=== PATIENT | male | born 1990 | race Caucasian/White ===

== ENCOUNTER 2017-03-29 15:29 | Emergency (ER) | payer SELFPAY ==
[~2017-03-29] VITALS: Ht 177.8 cm; Wt 80.0 kg
[~2017-03-29 15:29] MED LIST: Z.0.NO CURRENT MEDS; ZITH250T PO
[2017-03-29 15:30] VITALS: BP 143/100; PULSE 93; RESP 18; TEMP 98; O2SAT 98
--- NOTE | 2017-03-29 15:58 | PD ---
HPI Chief Complaint: GI Complaint Time Seen by Provider: 15:57 Travel History International Travel<30 days: No Contact w/Intl Traveler<30days: No Traveled to known affect area: No History of Present Illness HPI 27-year-old male presents to the emergency Department with complaint of rectal pain and bleeding for the last 5-6 months. Reports bright red blood with bowel movements only. Denies abdominal pain, nausea, vomiting, fever. Denies testicular swelling, penile discharge. Denies dysuria. Reports rectal pain as a stabbing, burning sensation. Denies palpable hemorrhoids. Has been using hemorrhoid cream with no relief of symptoms. Says rectal pain is constant, even without bowel movements. History of polyps. Allergies to Demerol. Has no other medical complaints. No other modifying factors or associated signs and symptoms. PFSH Past Medical History Diminished Hearing: No Past Surgical History Tonsillectomy: Yes Social History Alcohol Use: Yes (q 2 wks) Tobacco Use: Yes (1/2 ppd) Substance Use: Yes Allergies-Medications (Allergen,Severity, Reaction): Coded Allergies: Demerol (Verified Allergy, Severe, as per mom, makes him go crazy, 03/29/17) Reported Meds & Prescriptions Reported Meds & Active Scripts Active No Active Prescriptions or Reported Medications Review of Systems Except as stated in HPI: all other systems reviewed are Neg Physical Exam Narrative GENERAL: Well-nourished, well-developed male patient, in no acute distress; afebrile, nontoxic-appearing SKIN: Warm and dry. HEAD: Atraumatic. Normocephalic. EYES: Pupils equal and round. No scleral icterus. No injection or drainage. ENT: Mucosa pink and moist. Airway patent. NECK: Trachea midline. CARDIOVASCULAR: Regular rate. RESPIRATORY: No accessory muscle use. GASTROINTESTINAL: Abdomen soft, non-tender, nondistended. Hepatic and splenic margins not palpable. Bowel sounds are active 4 quadrants. No guarding. Nonrigid. RECTAL EXAM: Exam done in the presence of a nurse. No masses or tenderness. Colon is empty without stool. Hemaprompt: unable to perform secondary to no stool obtained. No visualized external hemorrhoids. No internal hemorrhoids palpable. MUSCULOSKELETAL: No obvious deformities. No clubbing. No cyanosis. No edema. NEUROLOGICAL: Awake and alert. Oriented 3. No obvious cranial nerve deficits. Motor grossly within normal limits. Normal speech. PSYCHIATRIC: Appropriate mood and affect; insight and judgment normal. Data Data Last Documented VS Vital Signs Date Time Temp Pulse Resp B/P Pulse Ox O2 Delivery O2 Flow Rate FiO2 03/29/17 16:06 126/84 03/29/17 15:30 98.0 93 18 98 Room Air MDM Medical Decision Making Medical Screen Exam Complete: Yes Emergency Medical Condition: Yes Medical Record Reviewed: Yes Differential Diagnosis Hemorrhoid, polyp, anal fissure, rectal bleeding Narrative Course 27-year-old female with rectal bleeding with each stool 5-6 months. Physical and rectal exam are unremarkable. I tried to obtain a Hemoccult but the colon is empty and there was no obtainable stool. No visualized or palpable hemorrhoids on exam. Instructed patient to follow up with gastroenterology. 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 Instructed patient to follow up with primary care provider. Patient verbalizes understanding and agreement with treatment plan. Patient is medically cleared and stable for discharge. Discussed reasons to return to the emergency department. Patient agrees with treatment plan. The patients vital signs are stable and the patient is stable for outpatient follow-up and treatment. Patient discharged home, stable and in no acute distress. Diagnosis Primary Impression: Rectal bleeding Referrals: Elizabeth Hameed MD [employer] Primary Care Physician Patient Instructions: General Instructions, Rectal Bleeding (ED) Additional Instructions: [id number] stool softeners as directed and as needed Follow-up with gastroenterology Follow-up with primary care provider Return to the emergency department immediately for worsening of symptoms Scripts No Active Prescriptions or Reported Meds Disposition: 01 DISCHARGE HOME Condition: Stable Winnie Herndon [facility] Mar 29, 2017 15:58
[2017-03-29 16:06] VITALS: BP_SYST 126; BP_DIAS 74; BP_DIAS 84
== END 2017-03-29 16:44 | disposition home or self-care (01) ==
LOC: NEPD 15:29
DX: K62.5 Hemorrhage of anus and rectum (principal); F17.210 Nicotine dependence, cigarettes, uncomplicated; F19.10 Other psychoactive substance abuse, uncomplicated
CPT/HCPCS: 99282

== ENCOUNTER 2017-08-12 11:41 | Inpatient (IN) | payer OTHER ==
[~2017-08-12] VITALS: Ht 175.3 cm; Wt 90.0 kg
[2017-08-12 11:45] VITALS: BP 129/84; PULSE 112; RESP 17; TEMP 98.9; O2SAT 100
[2017-08-12] MEDS ORDERED: ACETAMINOPHEN/HYDROcodone 325 MG/5 MG TAB PO ONE (15:45)
[2017-08-12] MEDS ORDERED: LIDOCAINE HCL 1% 50 ML VIAL INFIL ONE (15:45)
--- NOTE | 2017-08-12 15:59 | RADRPT ---
EXAM DATE/TIME: 08/12/2017 15:41 [place] COMPARISON: No previous studies available for comparison. INDICATIONS : [place] fell on big toe last night. MEDICAL HISTORY : None. SURGICAL HISTORY : None. ENCOUNTER: Initial ACUITY: 1 day PAIN SCORE: 9/10 LOCATION: Distal first digit. FINDINGS: AP, lateral and oblique views the right foot were obtained and demonstrate a mildly comminuted fractu re deformity of first distal phalanx. There is fragmentation of the tuft with a linear fracture line extending into the interphalangeal joint. There is overlying soft tissue swelling. No other bony abno rmalities are present. CONCLUSION: Comminuted fracture of the first distal phalanx. Obed Lee MD on August 12, 2017 at 15:56 Board Certified Radiologist. This report was verified electronically.
[2017-08-12] MEDS ORDERED: LIDOCAINE HCL 1% PF 30 ML VIAL ONE (16:01)
--- NOTE | 2017-08-12 16:34 | PD ---
HPI Chief Complaint: Injury Time Seen by Provider: 15:27 Travel History International Travel<30 days: No Contact w/Intl Traveler<30days: No Traveled to known affect area: No History of Present Illness HPI 27-year-old male presents to emergency department complaining of a wound to his right great toe since yesterday. States at a frozen turkey fell on his great toe and is in significant pain. Patient still has range of motion and sensation to the toe however, he is in severe pain. He has been able to control the bleeding on his own. [facility] Past Medical History Medical History: Denies Significant Hx Diminished Hearing: No Past Surgical History Tonsillectomy: Yes Social History Alcohol Use: Yes (q 2 wks) Tobacco Use: Yes (1/2 ppd) Substance Use: Yes Allergies-Medications (Allergen,Severity, Reaction): Coded Allergies: meperidine (Unverified Allergy, Severe, as per mom, makes him go crazy, ) Reported Meds & Prescriptions Reported Meds & Active Scripts Active No Active Prescriptions or Reported Medications Review of Systems Except as stated in HPI: all other systems reviewed are Neg Physical Exam Narrative GENERAL: Well-nourished, well-developed patient. SKIN: Focused skin assessment warm/dry. HEAD: Normocephalic. EYES: No scleral icterus. No injection or drainage. NECK: Supple, trachea midline. No JVD or lymphadenopathy. CARDIOVASCULAR: Regular rate and rhythm without murmurs, gallops, or rubs. RESPIRATORY: Breath sounds equal bilaterally. No accessory muscle use. GASTROINTESTINAL: Abdomen soft, non-tender, nondistended. MUSCULOSKELETAL: No cyanosis, or edema. Right great toe- neurovascularly intact, laceration approximately 1-1/2 cm on the very distal portion of his toe perpendicular to toe phalanx. Bleeding controlled. Ecchymosis noted from the distal phalanx to approximately 3 cm to the proximal foot BACK: Nontender without obvious deformity. No CVA tenderness. Data Data Last Documented VS Vital Signs Date Time Temp Pulse Resp B/P (MAP) Pulse Ox O2 Delivery O2 Flow Rate FiO2 08/12/17 17:49 92 15 148/87 (107) 100 Room Air 08/12/17 11:45 98.9 Orders Orders Foot, Complete ([id number]) (08/12/17 ) Lidocaine 1% Inj (50 Ml) (Xylocaine 1% I (08/12/17 15:45) Acetamin-Hydrocod 325-5 Mg ([place] 5-325 (08/12/17 15:45) Lidocaine Pf 1% Inj (Xylocaine-Mpf 1% In (08/12/17 16:01) Tetanus/Diphtheria Tox Adult (Tetanus/Di (08/12/17 16:45) Cefazolin Inj (Ancef Inj) (08/12/17 16:45) Cefazolin Inj (Ancef Inj) (08/12/17 17:15) Morphine Inj (Morphine Inj) (08/12/17 18:15) Gentamicin Inj (Gentamicin Inj) (08/12/17 18:15) Complete Blood Count With Diff (08/12/17 18:04) Basic Metabolic Panel (Bmp) (08/12/17 18:04) Consult Podiatry (08/12/17 ) Admit To Inpatient (08/12/17 ) Vital Signs (Adult) Q4H (08/12/17 19:12) Activity Oob Ad Hannah (08/12/17 19:12) Diet Npo (08/13/17 Breakfast) Diet Regular Basic (08/12/17 Dinner) Sodium Chlor 0.9% 1000 Ml Inj (Ns 1000 M (08/12/17 19:12) Sodium Chloride 0.9% Flush (Ns Flush) (08/12/17 19:15) Sodium Chloride 0.9% Flush (Ns Flush) (08/12/17 21:00) Ondansetron Inj (Zofran Inj) (08/12/17 19:15) Comprehensive Metabolic Panel (08/13/17 06:00) Complete Blood Count With Diff (08/13/17 06:00) Mechanical Contraindication (08/12/17 19:12) Acetaminophen (Tylenol) (08/12/17 19:15) Acetamin-Hydrocod 325-5 Mg ([place] 5-325 (08/12/17 19:15) Morphine Inj (Morphine Inj) (08/12/17 19:15) Docusate Sodium-Senna (Cindy-Colace) (08/12/17 21:00) Magnesium Hydroxide Liq (Milk Of Magnesi (08/12/17 19:15) Sennosides (Senokot) (08/12/17 19:15) Bisacodyl Supp (Dulcolax Supp) (08/12/17 19:15) Lactulose Liq (Lactulose Liq) (08/12/17 19:15) Inpatient Certification (08/12/17 ) (Hub Use Only)Inp Phy Cons/Ref (08/12/17 ) Labs Laboratory Tests Test 08/12/17 18:20 White Blood Count 8.8 TH/MM3 Red Blood Count 4.36 MIL/MM3 Hemoglobin 14.4 GM/DL Hematocrit 41.5 % Mean Corpuscular Volume 95.1 FL Mean Corpuscular Hemoglobin 33.0 PG Mean Corpuscular Hemoglobin Concent 34.7 % Red Cell Distribution Width 13.5 % Platelet Count 228 TH/MM3 Mean Platelet Volume 7.7 FL Neutrophils (%) (Auto) 58.9 % Lymphocytes (%) (Auto) 29.9 % Monocytes (%) (Auto) 9.8 % Eosinophils (%) (Auto) 1.1 % Basophils (%) (Auto) 0.3 % Neutrophils # (Auto) 5.2 TH/MM3 Lymphocytes # (Auto) 2.6 TH/MM3 Monocytes # (Auto) 0.9 TH/MM3 Eosinophils # (Auto) 0.1 TH/MM3 Basophils # (Auto) 0.0 TH/MM3 CBC Comment DIFF FINAL Differential Comment Blood Urea Nitrogen 18 MG/DL Creatinine 1.00 MG/DL Random Glucose 85 MG/DL Calcium Level 9.0 MG/DL Sodium Level 139 MEQ/L Potassium Level 4.0 MEQ/L Chloride Level 106 MEQ/L Carbon Dioxide Level 25.3 MEQ/L Anion Gap 8 MEQ/L Estimat Glomerular Filtration Rate 89 ML/MIN [facility] Medical Decision Making Medical Screen Exam Complete: Yes Emergency Medical Condition: Yes Differential Diagnosis Toe laceration versus abrasion versus avulsion Toe fracture versus contusion versus abrasion Narrative Course 27-year-old male presents to emergency department complaining of a wound to his right great toe since yesterday. States at a frozen turkey fell on his great toe and is in significant pain. Patient still has range of motion and sensation to the toe however, he is in severe pain. He has been able to control the bleeding on his own. Vital signs stable X-ray demonstrates a comminuted fracture of the distal phalanx right great toe Laceration to the distal portion approximately 1-2 cm perpendicular to the phalanx. No obvious bony involvement. Concern for open fracture- moved to echo pod for further treatment. Ancef 2 g IV administered. Spoke with Dr. Colvin, podiatry, and she suggested exploration of the area in addition to the treatments patient is getting already. After speaking with Dr. Thomas, he also explored the laceration to determine the extent of the soft tissue injury. Patient has been nothing by mouth since 10 AM this morning. Transferred care over to Dr. Thomas. See his note as well for care and dispo. Diagnosis Primary Impression: Fracture Additional Impression: Laceration of toe Qualified Codes: S91.111A - Laceration without foreign body of right great toe without damage to nail, initial encounter Referrals: Account Classification Clerk Additional Instructions: Follow-up with her primary care physician within 2 days. Follow-up podiatry within 1-2 days. If her pain worsens or persists return to the emergency department. Scripts No Active Prescriptions or Reported Meds Condition: Stable Yue Carrizales Aug 12, 2017 16:34
[2017-08-12] MEDS ORDERED: TETANUS/DIPHTHERIA TOXOID ADULT 0.5 ML VIAL IM ONE (16:45)
--- NOTE | 2017-08-12 17:12 | PD ---
Data Data Last Documented VS Vital Signs Date Time Temp Pulse Resp B/P (MAP) Pulse Ox O2 Delivery O2 Flow Rate FiO2 08/12/17 17:49 92 15 148/87 (107) 100 Room Air 08/12/17 11:45 98.9 Orders Orders Foot, Complete ([id number]) (08/12/17 ) Lidocaine 1% Inj (50 Ml) (Xylocaine 1% I (08/12/17 15:45) Acetamin-Hydrocod 325-5 Mg ([place] 5-325 (08/12/17 15:45) Lidocaine Pf 1% Inj (Xylocaine-Mpf 1% In (08/12/17 16:01) Tetanus/Diphtheria Tox Adult (Tetanus/Di (08/12/17 16:45) Cefazolin Inj (Ancef Inj) (08/12/17 16:45) Cefazolin Inj (Ancef Inj) (08/12/17 17:15) Morphine Inj (Morphine Inj) (08/12/17 18:15) Gentamicin Inj (Gentamicin Inj) (08/12/17 18:15) Complete Blood Count With Diff (08/12/17 18:04) Basic Metabolic Panel (Bmp) (08/12/17 18:04) Labs Laboratory Tests Test 08/12/17 18:20 White Blood Count 8.8 TH/MM3 Red Blood Count 4.36 MIL/MM3 Hemoglobin 14.4 GM/DL Hematocrit 41.5 % Mean Corpuscular Volume 95.1 FL Mean Corpuscular Hemoglobin 33.0 PG Mean Corpuscular Hemoglobin Concent 34.7 % Red Cell Distribution Width 13.5 % Platelet Count 228 TH/MM3 Mean Platelet Volume 7.7 FL Neutrophils (%) (Auto) 58.9 % Lymphocytes (%) (Auto) 29.9 % Monocytes (%) (Auto) 9.8 % Eosinophils (%) (Auto) 1.1 % Basophils (%) (Auto) 0.3 % Neutrophils # (Auto) 5.2 TH/MM3 Lymphocytes # (Auto) 2.6 TH/MM3 Monocytes # (Auto) 0.9 TH/MM3 Eosinophils # (Auto) 0.1 TH/MM3 Basophils # (Auto) 0.0 TH/MM3 CBC Comment DIFF FINAL Differential Comment MDM Supervised Visit with NOAH: Yes Narrative Course I, Dr. Thomas, have reviewed the advance practice practitioner's documentation and am in agreement, met with the patient face to face, made the diagnosis, and the medical decision making was done by me. *My assessment and Findings: Patient seen and examined by me in addition to [place] SURESH. Patient has laceration over the tip of the right great toe as well as a small subungual hematoma after dropping a 20 pound frozen turkey on his toe. Patient does have a comminuted fracture of the distal phalanx of the right great toe. The wound was explored by me and i cannot really identify the basement membrane given the swelling of his foot but certainly open fracture is likely. Ancef was given, podiatry consultation by phone is still pending. Engineering Aid arrives at the bedside to recommend IV antibiotics overnight as well as washout in the morning. Additional pain medicine was given the patient be nothing by mouth after midnight. [facility] has been paged for admission. Diagnosis Primary Impression: Fracture Additional Impression: Laceration of toe Qualified Codes: S91.111A - Laceration without foreign body of right great toe without damage to nail, initial encounter Referrals: Engineering Aid Additional Instruction: Follow-up with her primary care physician within 2 days. Follow-up podiatry within 1-2 days. If her pain worsens or persists return to the emergency department. Scripts No Active Prescriptions or Reported Meds Disposition: 01 DISCHARGE HOME Condition: Stable Wagner Thomas MD Aug 12, 2017 17:12
[2017-08-12 17:49] VITALS: BP 148/87; PULSE 92; RESP 15; O2SAT 100
[2017-08-12] MEDS ORDERED: MORPHINE SULFATE 8 MG/ML INJ IV PUSH ONE (18:15)
[2017-08-12] MEDS ORDERED: GENTAMICIN INJ 80 MG in SODIUM CHLORIDE 0.9% INJ 100 ML IV ONE (18:15)
[2017-08-12 18:33] LABS: AUTOMATED NEUTROPHIL # 5.2 TH/MM3 (1.8-7.7); BASOPHIL % 0.3 % (0.0-2.0); EOSINOPHIL # 0.1 TH/MM3 (0-0.4); EOSINOPHIL % 1.1 % (0.0-4.0); HEMATOCRIT 41.5 % (39.0-51.0); HEMO FLAGS DIFF FINAL; LYMPH % 29.9 % (9.0-44.0); LYMPHOCYTE # 2.6 TH/MM3 (1.0-4.8); MEAN CELL VOLUME 95.1 FL (80.0-100.0); MEAN CORPUSCULAR HGB CONC 34.7 % (32.0-36.0); MONO % 9.8 % (0.0-8.0); NEUT % 58.9 % (16.0-70.0); PLATELET COUNT 228 TH/MM3 (150-450); RED BLOOD COUNT 4.36 MIL/MM3 (4.50-5.90); RED CELL DISTRIBUTION WIDTH 13.5 % (11.6-17.2); WHITE BLOOD COUNT 8.8 TH/MM3 (4.0-11.0)
[2017-08-12 18:47] LABS: BICARBONATE 25.3 MEQ/L (21.0-32.0)
[2017-08-12] MEDS ORDERED: ONDANSETRON HCL 4 MG/2 ML VIAL IVP PRN (19:15)
[2017-08-12] MEDS ORDERED: BISACODYL 10 MG SUPP RECTAL PRN (19:15)
[2017-08-12] MEDS ORDERED: ACETAMINOPHEN 325 MG TAB PO PRN (19:15)
[2017-08-12] MEDS ORDERED: SENNOSIDES 8.6 MG TAB PO PRN (19:15)
[2017-08-12] MEDS ORDERED: LACTULOSE SYRUP 20 GM/30 ML CUP PO PRN (19:15)
[2017-08-12] MEDS ORDERED: MAGNESIUM HYDROXIDE SUSP 30 ML CUP PO PRN (19:15)
[2017-08-12] MEDS ORDERED: SODIUM CHLORIDE 0.9% FLUSH 10 ML FLUSH IV FLUSH PRN (19:15)
--- NOTE | 2017-08-12 19:16 | HHI.HP ---
[facility]ician No Primary Care Physician Admission Diagnosis Diagnoses: (1) Open toe fracture Diagnosis: Principal (2) Toe pain Diagnosis: Principal (3) HTN (hypertension) Diagnosis: Principal (4) Tobacco abuse Diagnosis: Principal Travel History International Travel<30 Days: No Contact w/Intl Traveler <30 Da: No Traveled to Known Affected Are: No History of Present Illness This is a 27-year-old male with no significant PMH who presented to the ER with complaints of right great toe pain x1 day. States he dropped a frozen Thanksgiving turkey on his foot yesterday, +laceration w/ significant bleeding. Denies any other injury. On arrival, BP 148/87, HR 92, O2 sat 100% on RA, Afebrile. CBC unremarkable. Chemistry unremarkable. Foot X-ray with comminuted fracture first distal phalanx. Dr. Anthony w/ Podiatry consulted by ER physician, plan is for surgical intervention in am. Review of Systems Except as stated in HPI: all other systems reviewed are Neg ROS: 14 point review of systems otherwise negative. Past Family Social History Past Medical History PMH: None Past Surgical History PAST SURGICAL HISTORY: Tonsillectomy Allergies: Coded Allergies: meperidine (Unverified Allergy, Severe, as per mom, makes him go crazy, ) Family History PAST FAMILY HISTORY: Reviewed. No h/o DM or CAD Social History PAST SOCIAL HISTORY: Occasional alcohol. Smokes 1/2ppd. H/o substance use Physical Exam Vital Signs Vital Signs Date Time Temp Pulse Resp B/P (MAP) Pulse Ox O2 Delivery O2 Flow Rate FiO2 08/12/17 17:49 92 15 148/87 (107) 100 Room Air 08/12/17 16:00 Room Air 08/12/17 11:45 98.9 112 17 129/84 (99) 100 Physical Exam PE: GENERAL: Young white male in no acute distress. HEENT: PERRLA, EOMI. No scleral icterus or conjunctival pallor. No lid lag or facial droop. CARDIOVASCULAR: Regular rate and rhythm. No obvious murmurs to auscultation. No chest tenderness to palpation. RESPIRATORY: No obvious rhonchi or wheezing. Clear to auscultation. Breath sounds equal bilaterally. GASTROINTESTINAL: Abdomen soft, non-tender, nondistended. BS normal. MUSCULOSKELETAL: Extremities without clubbing, cyanosis, or edema. No obvious deformities. Right great toe w/ bloody dressing, decreased ROM due to injury. Pulses intact NEUROLOGICAL: Awake, alert and oriented x4. No focal neurologic deficits. Moving both upper and lower extremities spontaneously. Laboratory Laboratory Tests Test 08/12/17 18:20 White Blood Count 8.8 Red Blood Count 4.36 Hemoglobin 14.4 Hematocrit 41.5 Mean Corpuscular Volume 95.1 Mean Corpuscular Hemoglobin 33.0 Mean Corpuscular Hemoglobin Concent 34.7 Red Cell Distribution Width 13.5 Platelet Count 228 Mean Platelet Volume 7.7 Neutrophils (%) (Auto) 58.9 Lymphocytes (%) (Auto) 29.9 Monocytes (%) (Auto) 9.8 Eosinophils (%) (Auto) 1.1 Basophils (%) (Auto) 0.3 Neutrophils # (Auto) 5.2 Lymphocytes # (Auto) 2.6 Monocytes # (Auto) 0.9 Eosinophils # (Auto) 0.1 Basophils # (Auto) 0.0 CBC Comment DIFF FINAL Differential Comment Blood Urea Nitrogen 18 Creatinine 1.00 Random Glucose 85 Calcium Level 9.0 Sodium Level 139 Potassium Level 4.0 Chloride Level 106 Carbon Dioxide Level 25.3 Anion Gap 8 Estimat Glomerular Filtration Rate 89 Result Diagram: 08/12/17181908/12/171819 Caprini VTE Risk Assessment Caprini VTE Risk Assessment: No/Low Risk (score <= 1) Caprini Risk Assessment Model Point Value = 1 Point Value = 2 Point Value = 3 Point Value = 5 Age 41-60 Minor surgery BMI > 25 kg/m2 Swollen legs Varicose veins or History of unexplained or recurrent spontaneous Oral contraceptives or hormone replacement Sepsis (< 1 month) Serious lung disease, including pneumonia (< 1 month) Abnormal pulmonary function Acute myocardial infarction Congestive heart failure (< 1 month) History of inflammatory bowel disease Medical patient at bed rest Age 61-74 Arthroscopic surgery Major open surgery (> 45 min) Laparoscopic surgery (> 45 min) Malignancy Confined to bed (> 72 hours) Immobilizing plaster cast Central venous access Age >= 75 History of VTE Family history of VTE Factor V Leiden Prothrombin [id number] Lupus anticoagulant Anticardiolipin antibodies Elevated serum homocysteine Heparin-induced thrombocytopenia Other congenital or acquired thrombophilia Stroke (< 1 month) Elective arthroplasty Hip, pelvis, or leg fracture Acute spinal cord injury (< 1 month) Prophylaxis Regimen Total Risk Factor Score Risk Level Prophylaxis Regimen 0-1 Low Early ambulation 2 Moderate Order ONE of the following: *Sequential Compression Device (SCD) *Heparin 5000 units SQ BID 3-4 Higher Order ONE of the following medications: *Heparin 5000 units SQ TID *Enoxaparin/Lovenox 40 mg SQ daily (WT < 150 kg, CrCl > 30 mL/min) *Enoxaparin/Lovenox 30 mg SQ daily (WT < 150 kg, CrCl > 10-29 mL/min) *Enoxaparin/Lovenox 30 mg SQ BID (WT < 150 kg, CrCl > 30 mL/min) AND/OR *Sequential Compression Device (SCD) 5 or more Highest Order ONE of the following medications: *Heparin 5000 units SQ TID (Preferred with Epidurals) *Enoxaparin/Lovenox 40 mg SQ daily (WT < 150 kg, CrCl > 30 mL/min) *Enoxaparin/Lovenox 30 mg SQ daily (WT < 150 kg, CrCl > 10-29 mL/min) *Enoxaparin/Lovenox 30 mg SQ BID (WT < 150 kg, CrCl > 30 mL/min) AND *Sequential Compression Device (SCD) Assessment and Plan Problem List: (1) Open toe fracture ICD Code: S92.919B - Unspecified fracture of unspecified toe(s), initial encounter for open fracture (2) Toe pain ICD Code: M79.676 - Pain in unspecified toe(s) (3) HTN (hypertension) ICD Code: I10 - Essential (primary) hypertension (4) Tobacco abuse ICD Code: Z72.0 - Tobacco use Assessment and Plan A/P: 1. Open Toe Fx: s/p injury after frozen turkey fell on right great toe, + laceration. Foot X-ray w/ comminuted fracture first distal phalanx, images reviewed by me. Dr. Anthony consulted by ER physician, plan is for surgical intervention in am. NPO after midnight, IVF, Ancef, analgesics/antiemetics. Pre-op labs unremarkable. 2. Toe Pain: secondary to above. Analgesics/antiemetics as needed. 3. HTN: BP 140's, likely compounded by pain complaints, monitor BP, optimize pain control. 4. Tobacco Abuse: Pt counselled. NicoDerm prn if needed. 5. DVT Prophylaxis: Mechanical contraindication secondary to injury, Pharmacologic contraindication secondary to surgical intervention. 6. Social work for d/c planning as needed. 7. Case discussed w/ ER physician at length. Physician Certification 2 Midnight Certification Type: Admission for Inpatient Services Order for Inpatient Services The services are ordered in accordance with Medicare regulations or non- Medicare payer requirements, as applicable. In the case of services not specified as inpatient-only, they are appropriately provided as inpatient services in accordance with the 2-midnight benchmark. Estimated LOS (days): 2 days is the estimated time the patient will need to remain in the hospital, assuming treatment plan goals are met and no additional complications. Post-Hospital Plan: Not yet determined Debbi Orlando MD Aug 12, 2017 19:16
[2017-08-12 21:20] VITALS: BP 145/83; PULSE 93; RESP 18; O2SAT 100
[2017-08-12] MEDS: SODIUM CHLORIDE 0.9% FLUSH 10 ML FLUSH IV FLUSH SCH (21:25)
[2017-08-12] MEDS: SODIUM CHLOR 0.9% 1000 ML INJ 1,000 ML IV SCH (21:25)
[2017-08-12] MEDS: DOCUSATE SODIUM 50 MG/SENNA 8.6 MG TAB PO SCH (21:25)
[2017-08-12] MEDS: MORPHINE SULFATE 4 MG/ML INJ IV PUSH PRN ×2 (21:26→22:26)
[2017-08-12 22:00] VITALS: BP 126/82; PULSE 93; RESP 17; TEMP 97.3; O2SAT 96
[2017-08-12] MEDS: ACETAMINOPHEN/HYDROcodone 325 MG/5 MG TAB PO PRN (22:26)
[2017-08-12] MEDS ORDERED: LACTATED RINGER'S 1000 ML IV PRN (22:30)
[2017-08-12] MEDS ORDERED: POVIDONE IODINE 5% (ANTISEPSIS KIT) 4 APPLICATIONS EACH NARE PRN (22:30)
[2017-08-12] MEDS ORDERED: CHLORHEXIDINE GLUCONATE 2 % 1 PACK (2 CLOTHS) TOPICAL PRN (22:30)
--- NOTE | 2017-08-12 22:43 | PD.CONS ---
History of Present Illness Service Podiatry Consult Requested By ED Reason for Consult R hallux open fracture, distal phalanx 2 days old Primary Care Physician No Primary Care Physician Diagnoses: History of Present Illness 27-year-old male with no significant PMH who presented to the ER with complaints of right great toe pain x1 day. States he dropped a frozen Thanksgiving turkey on his foot yesterday, +laceration w/ significant bleeding. Denies any other injury. On arrival, BP 148/87, HR 92, O2 sat 100% on RA, Afebrile. CBC unremarkable. Chemistry unremarkable. Foot X-ray with comminuted fracture first distal phalanx. Past Family Social History Allergies: Coded Allergies: meperidine (Unverified Allergy, Severe, as per mom, makes him go crazy, ) Past Medical History Denies Past Surgical History Tonsillectomy Active Ordered Medications Current Medications Medications (Trade) Dose Ordered Sig/Emanuel Route Start Time Stop Time Status Last Admin Sodium Chloride 1,000 ml @ 100 mls/hr Q10H IV 08/12/17 19:12 08/12/17 21:25 (NS Flush) 2 ml UNSCH PRN IV FLUSH 08/12/17 19:15 (NS Flush) 2 ml BID IV FLUSH 08/12/17 21:00 08/12/17 21:25 (Zofran Inj) 4 mg Q6H PRN IVP 08/12/17 19:15 (Tylenol) 650 mg Q6H PRN PO 08/12/17 19:15 ([place] 5-325 Mg) 1 tab Q4H PRN PO 08/12/17 19:15 08/12/17 22:26 (Morphine Inj) 2 mg Q3H PRN IV PUSH 08/12/17 19:15 08/13/17 04:31 (Cindy-Colace) 1 tab BID PO 08/12/17 21:00 08/12/17 21:25 (Milk Of Magnesia Liq) 30 ml Q12H PRN PO 08/12/17 19:15 (Senokot) 17.2 mg Q12H PRN PO 08/12/17 19:15 (Dulcolax Supp) 10 mg DAILY PRN RECTAL 08/12/17 19:15 (Lactulose Liq) 30 ml DAILY PRN PO 08/12/17 19:15 Lactated Ringer's 1,000 ml @ 30 mls/hr Q24H PRN IV 08/12/17 22:30 08/15/17 22:29 (Betadine 5% Antisepsis Kit) 1 applic [employer] PRN EACH NARE 08/12/17 22:30 08/15/17 22:29 (Chlorhexidine 2% Cloth) 3 pack [employer] PRN TOPICAL 08/12/17 22:30 08/15/17 22:29 Family History denies Social History Occasional alcohol. Smokes 1/2ppd. H/o substance use Physical Exam Vital Signs Vital Signs Date Time Temp Pulse Resp B/P (MAP) Pulse Ox O2 Delivery O2 Flow Rate FiO2 08/12/17 22:00 97.3 93 17 126/82 (97) 96 08/12/17 21:58 08/12/17 21:20 93 18 145/83 (103) 100 Room Air 08/12/17 17:49 92 15 148/87 (107) 100 Room Air 08/12/17 16:00 Room Air 08/12/17 11:45 98.9 112 17 129/84 (99) 100 Physical Exam Compartments soft. NVI to R hallux. Distal open lesion to bone with ecchymosis beneath 100% of hallux nail. No gross debris noted. Painful to palpation. Laboratory Laboratory Tests Test 08/12/17 18:20 White Blood Count 8.8 Red Blood Count 4.36 Hemoglobin 14.4 Hematocrit 41.5 Mean Corpuscular Volume 95.1 Mean Corpuscular Hemoglobin 33.0 Mean Corpuscular Hemoglobin Concent 34.7 Red Cell Distribution Width 13.5 Platelet Count 228 Mean Platelet Volume 7.7 Neutrophils (%) (Auto) 58.9 Lymphocytes (%) (Auto) 29.9 Monocytes (%) (Auto) 9.8 Eosinophils (%) (Auto) 1.1 Basophils (%) (Auto) 0.3 Neutrophils # (Auto) 5.2 Lymphocytes # (Auto) 2.6 Monocytes # (Auto) 0.9 Eosinophils # (Auto) 0.1 Basophils # (Auto) 0.0 CBC Comment DIFF FINAL Differential Comment Blood Urea Nitrogen 18 Creatinine 1.00 Random Glucose 85 Calcium Level 9.0 Sodium Level 139 Potassium Level 4.0 Chloride Level 106 Carbon Dioxide Level 25.3 Anion Gap 8 Estimat Glomerular Filtration Rate 89 Result Diagram: 08/12/17 1820 08/12/17 1820 Imaging Last 72 hours Impressions Foot X-Ray 08/12/17 0000 Signed Impressions: Service Date/Time: Saturday, August 12, 2017 15:41 - CONCLUSION: Comminuted fracture of the first distal phalanx. Obed Lee MD Assessment and Plan Assessment and Plan R hallux distal phalanx fracture, open To OR tomorrow for I&D open fracture (2 days old) NPO after midnight Barbara Anthony DPM Aug 12, 2017 22:43
[2017-08-13] VITALS: BP 119/69; PULSE 109; RESP 16; TEMP 96.2; O2SAT 97
[2017-08-13] MEDS: MORPHINE SULFATE 4 MG/ML INJ IV PUSH PRN ×4 (04:31→21:57)
--- NOTE | 2017-08-13 04:35 | PD.POD ---
Subjective Podiatric Problems Calcaneus fracture with xignificant increase in pain x 1 hour to entire R foot Past Med/Surg/Social History Social History Smoking Status: Current Every Day Smoker Objective Vital Signs Vital Signs Date Time Temp Pulse Resp B/P (MAP) Pulse Ox O2 Delivery O2 Flow Rate FiO2 08/13/17 00:00 96.2 109 16 119/69 (86) 97 08/12/17 22:00 97.3 93 17 126/82 (97) 96 08/12/17 21:58 08/12/17 21:20 93 18 145/83 (103) 100 Room Air 08/12/17 17:49 92 15 148/87 (107) 100 Room Air 08/12/17 16:00 Room Air 08/12/17 11:45 98.9 112 17 129/84 (99) 100 Coded Allergies: meperidine (Unverified Allergy, Severe, as per mom, makes him go crazy, ) Other Results Last 72 hours Impressions Foot X-Ray 08/12/17 0000 Signed Impressions: Service Date/Time: Saturday, August 12, 2017 15:41 - CONCLUSION: Comminuted fracture of the first distal phalanx. Obed Lee MD Objective Remarks Laboratory Tests Test 08/12/17 18:20 White Blood Count 8.8 TH/MM3 Red Blood Count 4.36 MIL/MM3 Hemoglobin 14.4 GM/DL Hematocrit 41.5 % Mean Corpuscular Volume 95.1 FL Mean Corpuscular Hemoglobin 33.0 PG Mean Corpuscular Hemoglobin Concent 34.7 % Red Cell Distribution Width 13.5 % Platelet Count 228 TH/MM3 Mean Platelet Volume 7.7 FL Neutrophils (%) (Auto) 58.9 % Lymphocytes (%) (Auto) 29.9 % Monocytes (%) (Auto) 9.8 % Eosinophils (%) (Auto) 1.1 % Basophils (%) (Auto) 0.3 % Neutrophils # (Auto) 5.2 TH/MM3 Lymphocytes # (Auto) 2.6 TH/MM3 Monocytes # (Auto) 0.9 TH/MM3 Eosinophils # (Auto) 0.1 TH/MM3 Basophils # (Auto) 0.0 TH/MM3 CBC Comment DIFF FINAL Differential Comment Blood Urea Nitrogen 18 MG/DL Creatinine 1.00 MG/DL Random Glucose 85 MG/DL Calcium Level 9.0 MG/DL Sodium Level 139 MEQ/L Potassium Level 4.0 MEQ/L Chloride Level 106 MEQ/L Carbon Dioxide Level 25.3 MEQ/L Anion Gap 8 MEQ/L Estimat Glomerular Filtration Rate 89 ML/MIN Physical Exam Remarks Severe pain with passive stretch, severe uncontrolled pain in general that is worsening, and compartments not compressible to forefoot and calcaneal compartments. Capillary refill time remains brisk to digits and DP/PT pulses palpable Assessment & Plan Procedures Acute compartment syndrome R foot x 1 hour, s/p calcaneal fracture R foot To OR now for fasciotomy R foot and possible attempt at percutaneous/mini open reduction w external/internal fixation calcaneus. Discussed possible wound vac Barbara Anthony DPM Aug 13, 2017 04:35
[2017-08-13] MEDS: SODIUM CHLOR 0.9% 1000 ML INJ 1,000 ML IV SCH ×3 (05:12→20:57)
[2017-08-13 07:51] VITALS: BP 132/87; PULSE 79; RESP 16; TEMP 98.2; O2SAT 100
[2017-08-13 07:59] LABS: AUTOMATED NEUTROPHIL # 3.3 TH/MM3 (1.8-7.7); BASOPHIL # 0.1 TH/MM3 (0-0.2); BASOPHIL % 0.7 % (0.0-2.0); EOSINOPHIL # 0.2 TH/MM3 (0-0.4); EOSINOPHIL % 2.5 % (0.0-4.0); HEMATOCRIT 39.1 % (39.0-51.0); HEMO FLAGS DIFF FINAL; LYMPH % 43.8 % (9.0-44.0); LYMPHOCYTE # 3.5 TH/MM3 (1.0-4.8); MEAN CELL VOLUME 95.2 FL (80.0-100.0); MEAN CORPUSCULAR HGB CONC 34.7 % (32.0-36.0); MONO % 11.9 % (0.0-8.0); NEUT % 41.1 % (16.0-70.0); PLATELET COUNT 201 TH/MM3 (150-450); RED BLOOD COUNT 4.11 MIL/MM3 (4.50-5.90); RED CELL DISTRIBUTION WIDTH 13.6 % (11.6-17.2)
[2017-08-13 08:06] LABS: ALT (GPT) 32 U/L (12-78); ANION GAP 9 MEQ/L (5-15); AST (GOT) 18 U/L (15-37); BICARBONATE 24.3 MEQ/L (21.0-32.0); BLOOD UREA NITROGEN 18 MG/DL (7-18); CHLORIDE 106 MEQ/L (98-107); GLOMERULAR FILTRATION RATE 91 ML/MIN (>89); POTASSIUM 3.9 MEQ/L (3.5-5.1); SODIUM (NA) 139 MEQ/L (136-145)
[2017-08-13 08:09] LABS: ALKALINE PHOSPHATASE 65 U/L (45-117); TOTAL BILIRUBIN ADULT 0.9 MG/DL (0.2-1.0)
[2017-08-13] MEDS ORDERED: GENTAMICIN SULFATE 80 MG/2 ML VIAL ONE ×2 (08:31→09:47)
[2017-08-13] MEDS ORDERED: BUPIVACAINE HCL PF 0.5% 30 ML VIAL ONE (08:39)
[2017-08-13] MEDS: DOCUSATE SODIUM 50 MG/SENNA 8.6 MG TAB PO SCH ×2 (09:00→20:56)
[2017-08-13] MEDS ORDERED: ACETAMINOPHEN 1000 MG/100 ML 100 ML IV ONE (09:36)
--- NOTE | 2017-08-13 10:22 | HHI.PR ---
Immediate Post Op Note Procedure Date: Aug 13, 2017 Pre Op Diagnosis: Open fracture left hallux, distal phalanx Nail bed injury L halluc Post Op Diagnosis: Same Surgeon: Barbara Anthony DPM Supply Clerk(s): Staff Procedure: Irrigation and debridement R hallux open fracture, distal phalanx, and nail bed injury laceration repair Findings: Consistent with diagnosis. R great toe with 100% ecchymosis beneath nail bed. Nail removed and transverse nail bed laceration noted with visible/palpable bone noted. No gross debris noted in wound. Distal hallux with laceration longitudinally, approximately 1.5cm length, probes to bone of distal phalanx. No gross contamination. Irrigation with 3L NS and debridement of nonviable tissue down to healthy bleeding subcutaneous tissue and bone performed. Followed by closure of nail laceration and distal hallux with 2-0 nylon suture. Dressing with xeroform, 4x4, cast padding, trip RLE. WBAT R foot in surgical shoe. Ok to d/c home on broad spectrum oral antibiotics if gram's stain/culture negative. Follow up in clinic in 1 week for dressing change. Keep dressing clean, dry, intact until then. Additional Information: n/a. On ancef/gentamicin Complications: none Specimen(s) removed: culture R hallux Estimated blood loss: minimal Anesthesia: General, Local (20mL 0.5% marcaine plain) IVF Tourniquet time (min at mmHg) n/a Patient to: PACU Patient Condition: Good Date/Time of Procedure: SEE SURGICAL CARE RECORD Barbara Anthony DPM Aug 13, 2017 10:22
[2017-08-13] MEDS ORDERED: *morphine SULFATE 8 MG/ML PERIprocedure ONLY ONE ×2 (10:27→10:46)
[2017-08-13] MEDS ORDERED: *HYDROmorphone PF 1 MG VIAL PERIprocedural Use ONLY ONE ×2 (10:32→10:37)
[2017-08-13] MEDS ORDERED: BUPIVACAINE/EPINEPHRINE 0.5% PF 30 ML VIAL INFIL ONE (11:00)
[2017-08-13] MEDS: ACETAMINOPHEN/HYDROcodone 325 MG/5 MG TAB PO PRN ×3 (11:28→20:56)
[2017-08-13] MEDS: SODIUM CHLORIDE 0.9% FLUSH 10 ML FLUSH IV FLUSH SCH ×2 (11:55→20:56)
[2017-08-13 12:00] VITALS: BP 127/76; PULSE 89; RESP 16; TEMP 98.2; O2SAT 97
[2017-08-13] MEDS ORDERED: DO NOT ADM ANY ANTICOAGULANT DRUGS PRN (12:00)
--- NOTE | 2017-08-13 12:39 | HHI.PR ---
Subjective Remarks Follow-up for open toe fracture Patient seen right after aware. He stated that his foot hurt. Otherwise he has no complaints. Schedule patient's nurse. Objective Vitals Vital Signs Date Time Temp Pulse Resp B/P (MAP) Pulse Ox O2 Delivery O2 Flow Rate FiO2 08/13/17 10:57 101 14 125/87 (100) 96 Nasal Cannula 3 08/13/17 10:50 109 14 133/84 (100) 99 Nasal Cannula 3 08/13/17 10:40 102 14 122/72 (89) 98 Nasal Cannula 3 08/13/17 10:29 98.2 112 14 128/68 (88) 99 Nasal Cannula 3 08/13/17 07:51 98.2 79 16 132/87 (102) 100 08/13/17 00:00 96.2 109 16 119/69 (86) 97 08/12/17 22:00 97.3 93 17 126/82 (97) 96 08/12/17 21:58 08/12/17 21:20 93 18 145/83 (103) 100 Room Air 08/12/17 17:49 92 15 148/87 (107) 100 Room Air 08/12/17 16:00 Room Air I/O 08/12/17 08/12/17 08/12/17 08/13/17 08/13/17 08/13/17 07:00 15:00 23:00 07:00 15:00 23:00 Intake Total 1440 ml 1000 ml Output Total 10 ml Balance 1440 ml 990 ml Intake Oral 1440 ml Other 1000 ml Output Urine Total 0 ml Other 10 ml # Voids 1 Result Diagram: 08/13/17 0650 08/13/17 0650 Objective Remarks GENERAL: in NAD CARDIOVASCULAR: Regular rate and rhythm without murmurs, gallops, or rubs. RESPIRATORY: Breath sounds equal bilaterally. No accessory muscle use. GASTROINTESTINAL: Abdomen soft, non-tender, nondistended. MUSCULOSKELETAL: Right foot wrapped in bandages. Sensations intact. Medications and IVs Current Medications Lidocaine HCl (Xylocaine 1% Inj (50 ml)) 50 ml ONCE ONCE INFIL ; Start at 15:45; Stop 08/12/17 at 16:07; Status DC Acetaminophen/ Hydrocodone Bitart ([place] 5-325 Mg) 1 tab ONCE ONCE PO Last administered on 08/12/17t 16:18; Start 08/12/17 at 15:45; Stop 08/12/17 at 15 :46; Status DC Lidocaine HCl (Xylocaine-Mpf 1% Inj) 30 ml STK-MED ONCE .ROUTE ; Start at 16:01; Stop 08/12/17 at 16:02; Status DC Tetanus/ Diphtheria Toxoids (Tetanus/ Diphtheria Tox Adult) 0.5 ml ONCE ONCE IM Last administered on 08/12/17 17:39; Start 08/12/17 at 16:45; Stop at 16:46; Status DC Cefazolin Sodium 1000 mg/Sodium Chloride 100 ml @ 200 mls/hr ONCE ONCE IV ; Start 08/12/17 at 16:45; Stop 08/12/17 at 17:04; Status DC Cefazolin Sodium 2000 mg/Sodium Chloride 100 ml @ 200 mls/hr ONCE ONCE IV Last administered on 08/12/17 17:38; Start 08/12/17 at 17:15; Stop 08/12/17 at 17:44; Status DC Morphine Sulfate (Morphine Inj) 6 mg ONCE ONCE IV PUSH Last administered on 18:35; Start 08/12/17 at 18:15; Stop 08/12/17 at 18:16; Status DC Gentamicin Sulfate 80 mg/ Sodium Chloride 102 ml @ 100 mls/hr ONCE ONCE IV Last administered on 08/12/17 18:35; Start 08/12/17 at 18:15; Stop 08/12/17 at 19:16; Status DC Sodium Chloride 1,000 ml @ 100 mls/hr Q10H IV Last administered on 08/12/17 21:25; Start 08/12/17 at 19:12 Sodium Chloride (NS Flush) 2 ml UNSCH PRN IV FLUSH FLUSH AFTER USING IV ACCESS ; Start 08/12/17 at 19:15 Sodium Chloride (NS Flush) 2 ml BID IV FLUSH Last administered on 08/13/17 11 :55; Start 08/12/17 at 21:00 Ondansetron HCl (Zofran Inj) 4 mg Q6H PRN IVP NAUSEA OR VOMITING; Start at 19:15 Acetaminophen (Tylenol) 650 mg Q6H PRN PO FEVER/PAIN SCALE 1 TO 2; Start 08/12 at 19:15 Acetaminophen/ Hydrocodone Bitart ([place] 5-325 Mg) 1 tab Q4H PRN PO PAIN SCALE 3 TO 5 Last administered on 08/13/17 11:28; Start 08/12/17 at 19:15 Morphine Sulfate (Morphine Inj) 2 mg Q3H PRN IV PUSH Pain 6-10 Last administered on 08/13/17 08:21; Start 08/12/17 at 19:15 Senna/Docusate Sodium (Cindy-Colace) 1 tab BID PO Last administered on 21:25; Start 08/12/17 at 21:00 Magnesium Hydroxide (Milk Of Magnesia Liq) 30 ml Q12H PRN PO Mild constipation ; Start 08/12/17 at 19:15 Sennosides (Senokot) 17.2 mg Q12H PRN PO Moderate constipation; Start at 19:15 Bisacodyl (Dulcolax Supp) 10 mg DAILY PRN RECTAL SEVERE CONSITIPATION; Start 08/12/17 at 19:15 Lactulose (Lactulose Liq) 30 ml DAILY PRN PO SEVERE CONSITIPATION; Start 08/12 at 19:15 Lactated Ringer's 1,000 ml @ 30 mls/hr Q24H PRN IV SEE LABEL COMMENTS; Start 08/12/17 at 22:30; Stop 08/15/17 at 22:29 Povidone Iodine (Betadine 5% Antisepsis Kit) 1 applic [employer] PRN EACH NARE SEE LABEL COMMENTS; Start 08/12/17 at 22:30; Stop 08/15/17 at 22:29 Chlorhexidine Gluconate (Chlorhexidine 2% Cloth) 3 pack [employer] PRN TOPICAL SEE LABEL COMMENTS; Start 08/12/17 at 22:30; Stop 08/15/17 at 22:29 Gentamicin Sulfate (Gentamicin Inj) 240 mg STK-MED ONCE .ROUTE Last administered on 08/13/17 10:00; Start 08/13/17 at 08:31; Stop 08/13/17 at 08 :32; Status DC Bupivacaine HCl (Marcaine Pf 0.5% Inj) 30 ml STK-MED ONCE .ROUTE Last administered on 08/13/17 10:10; Start 08/13/17 at 08:39; Stop 08/13/17 at 08 :40; Status DC Acetaminophen 100 ml @ As Directed STK-MED ONCE IV ; Start 08/13/17 at 09:36; Stop 08/13/17 at 09:37; Status DC Gentamicin Sulfate (Gentamicin Inj) 80 mg STK-MED ONCE .ROUTE ; Start 08/13/17 at 09:47; Stop 08/13/17 at 09:48; Status DC Cefazolin Sodium/ Dextrose 50 ml @ 100 mls/hr Q8H IV ; Start 08/13/17 at 18:00 Gentamicin Sulfate/Sodium Chloride 100 ml @ 200 mls/hr Q8H IV ; Start at 17:00 Bupivacaine HCl/ Epinephrine Bitart (Sensorcaine-Epinephrine Pf 0.5% Inj) 20 ml ONCE ONCE INFIL ; Start 08/13/17 at 11:00; Stop 08/13/17 at 11:01; Status DC Morphine Sulfate (*morphine INJ PERIprocedure ONLY) 8 mg STK-MED ONCE .ROUTE Last administered on 08/13/17 10:27; Start 08/13/17 at 10:27; Stop 08/13/17 at 10:28; Status DC Hydromorphone HCl (*DILAUDID PF INJ PERIprocedural ONLY) 1 mg STK-MED ONCE .ROUTE Last administered on 08/13/17 10:32; Start 08/13/17 at 10:32; Stop 08/13/17 at 10:33; Status DC Hydromorphone HCl (*DILAUDID PF INJ PERIprocedural ONLY) 1 mg STK-MED ONCE .ROUTE Last administered on 08/13/17 10:37; Start 08/13/17 at 10:37; Stop 08/13/17 at 10:38; Status DC Morphine Sulfate (*morphine INJ PERIprocedure ONLY) 8 mg STK-MED ONCE .ROUTE Last administered on 08/13/17 10:46; Start 08/13/17 at 10:46; Stop 08/13/17 at 10:47; Status DC Miscellaneous Information ALL NURSING DEPARTME... UNSCH PRN .XX SEE LABEL COMMENTS; Start 08/13/17 at 12:00; Stop 08/14/17 at 11:59 A/P Problem List: (1) Open toe fracture ICD Code: S92.919B - Unspecified fracture of unspecified toe(s), initial encounter for open fracture (2) Toe pain ICD Code: M79.676 - Pain in unspecified toe(s) (3) HTN (hypertension) ICD Code: I10 - Essential (primary) hypertension (4) Tobacco abuse ICD Code: Z72.0 - Tobacco use Assessment and Plan 27-year-old male who suffered a toe fracture secondary to frozen turkey falling on his right great toe Open Toe Fx: - s/p injury after frozen turkey fell on right great toe, +laceration. Foot X- ray w/ comminuted fracture first distal phalanx, - Dr. Anthony consulted. -Patient had irrigation and debridement R hallux open fracture, distal phalanx, and nail bed injury laceration repair done today. -Per orthopedic WBAT R foot in surgical shoe, Ok to d/c home on broad spectrum oral antibiotics if gram's stain/culture negative, follow up in clinic in 1 week for dressing change, nad keep dressing clean, dry, intact until then. -Pending wound cultures. Tobacco Abuse: - Pt counselled. NicoDerm prn if needed. DVT Prophylaxis: - Mechanical contraindication secondary to injury Discharge Planning Pending wound cultures before discharge Ladan Moreno MD Aug 13, 2017 12:39
[2017-08-13 15:15] VITALS: O2SAT 96
[2017-08-13 15:40] VITALS: BP 125/74; PULSE 101; RESP 16; TEMP 96.6; O2SAT 97
[2017-08-13] MEDS: GENTAMICIN 80 MG PREMIX 100 ML IV SCH (16:43)
[2017-08-13] MEDS: ceFAZolin 2 GM PREMIX 50 ML IV SCH (17:34)
[2017-08-13 19:15] VITALS: BP 149/95; PULSE 95; RESP 20; TEMP 96.4; O2SAT 99
[2017-08-14] VITALS: BP 123/78; PULSE 91; RESP 20; TEMP 98; O2SAT 97
[2017-08-14] MEDS: GENTAMICIN 80 MG PREMIX 100 ML IV SCH ×2 (00:24→08:10)
[2017-08-14] MEDS: ACETAMINOPHEN/HYDROcodone 325 MG/5 MG TAB PO PRN ×3 (01:38→14:33)
[2017-08-14] MEDS: ceFAZolin 2 GM PREMIX 50 ML IV SCH ×2 (02:00→10:11)
[2017-08-14 04:00] VITALS: BP 119/69; PULSE 69; RESP 20; TEMP 97; O2SAT 98
[2017-08-14 07:21] VITALS: BP 113/54; PULSE 73; RESP 16; TEMP 96.2; O2SAT 97
[2017-08-14] MEDS: MORPHINE SULFATE 4 MG/ML INJ IV PUSH PRN ×2 (08:04→11:38)
[2017-08-14] MEDS: SODIUM CHLORIDE 0.9% FLUSH 10 ML FLUSH IV FLUSH SCH (08:09)
[2017-08-14] MEDS: DOCUSATE SODIUM 50 MG/SENNA 8.6 MG TAB PO SCH (09:14)
[2017-08-14] MEDS: SODIUM CHLOR 0.9% 1000 ML INJ 1,000 ML IV SCH (11:12)
[2017-08-14 11:15] VITALS: BP 134/84; PULSE 96; RESP 18; TEMP 97.4; O2SAT 100
[2017-08-14] MEDS ORDERED: HYDR-3516 PO (13:28)
[2017-08-14] MEDS ORDERED: AUGM875T3 PO (13:28)
[2017-08-14] MEDS ORDERED: BACT800T5 PO (13:28)
--- NOTE | 2017-08-14 13:29 | HHI.DCPOC ---
Discharge Care Plan Diagnosis: (1) Open toe fracture Goals to Promote Your Health * To prevent worsening of your condition and complications * To maintain your health at the optimal level Directions to Meet Your Goals Take your medications as prescribed Follow your dietary instruction Follow activity as directed Keep your appointments as scheduled Take your immunizations and boosters as scheduled If your symptoms worsen call your PCP, if no PCP go to Urgent Care Center or Emergency Room Smoking is Dangerous to Your Health. Avoid second hand smoke Call the 24-hour hour crisis hotline for domestic abuse at Ladan Moreno MD Aug 14, 2017 13:29
--- NOTE | 2017-08-14 15:25 | HHI.DS ---
Discharge Summary Admission Date Aug 12, 2017 at 19:42 Discharge Date: Aug 14, 2017 Admitting Diagnosis (1) Open toe fracture ICD Code: S92.919B - Unspecified fracture of unspecified toe(s), initial encounter for open fracture Diagnosis: Principal (2) Tobacco abuse ICD Code: Z72.0 - Tobacco use Diagnosis: Secondary Procedures See hospital course. Brief History - From Admission This is a 27-year-old male with no significant PMH who presented to the ER with complaints of right great toe pain x1 day. States he dropped a frozen Thanksgiving turkey on his foot yesterday, +laceration w/ significant bleeding. Denies any other injury. On arrival, BP 148/87, HR 92, O2 sat 100% on RA, Afebrile. CBC unremarkable. Chemistry unremarkable. Foot X-ray with comminuted fracture first distal phalanx. Dr. Anthony w/ Podiatry consulted by ER physician, plan is for surgical intervention in am. CBC/BMP: 08/13/17 0650 08/13/17 0650 Significant Findings Laboratory Tests Test 08/12/17 18:20 08/13/17 06:50 Red Blood Count 4.36 MIL/MM3 (4.50-5.90) 4.11 MIL/MM3 (4.50-5.90) Monocytes (%) (Auto) 9.8 % (0.0-8.0) 11.9 % (0.0-8.0) Imaging Last Impressions Foot X-Ray 08/12/17 0000 Signed Impressions: Service Date/Time: Saturday, August 12, 2017 15:41 - CONCLUSION: Comminuted fracture of the first distal phalanx. Obed Lee MD PE at Discharge GENERAL: in NAD CARDIOVASCULAR: Regular rate and rhythm without murmurs, gallops, or rubs. RESPIRATORY: Breath sounds equal bilaterally. No accessory muscle use. GASTROINTESTINAL: Abdomen soft, non-tender, nondistended. MUSCULOSKELETAL: Right foot wrapped in bandages. Sensations intact. Pt update on day of discharge Follow-up for surgery on toe fracture Patient had no complains. He stated pain is controlled. Denied nausea or vomiting. He is tolerating oral intake. Hospital Course 27-year-old male who suffered a toe fracture secondary to frozen turkey falling on his right great toe Open Toe Fx: - s/p injury after frozen turkey fell on right great toe, +laceration. Foot X- ray w/ comminuted fracture first distal phalanx, - Dr. Anthony consulted. -Patient had irrigation and debridement R hallux open fracture, distal phalanx, and nail bed injury laceration repair on 08/13/2017. -Per orthopedic WBAT R foot in surgical shoe, Ok to d/c home on broad spectrum oral antibiotics if gram's stain/culture negative, follow up in clinic in 1 week for dressing change, nad keep dressing clean, dry, intact until then. -Gram stain negative and wound cultures negative. Patient was sent home on Bactrim and Augmentin. Tobacco Abuse: - Pt counselled. NicoDerm prn if needed. Pt Condition on Discharge: Good Discharge Disposition: Discharge Home Discharge Time: <= 30 minutes Discharge Instructions DIET: Follow Instructions for: Heart Healthy Diet Activities you can perform: See Additionl Instruction Other Activity Instructions: Follow up in clinic in 1 week for dressing change. Keep dressing clean, dry, intact until then. Follow up Referrals: PCP Follow-up - 2 Weeks Podiatry - 1 Week with Barbara Anthony DPM New Medications: Amoxicillin-Clavulanate (Augmentin) 875-125 Mg Tab 1 TAB PO BID for Infection, #20 TAB 0 Refills Sulfamethoxazole-Trimethoprim (Bactrim DS) 800-160 Mg Tab 1 TAB PO BID for Infection, #20 TAB 0 Refills Hydrocodone/Acetaminophen (Hydrocodone-Acetamin 5-325 mg) 5 Mg-325 Mg Tablet 1-2 TAB PO Q4H PRN for moderate to severe pain, #30 TAB 0 Refills Ladan Moreno MD Aug 14, 2017 15:25
== END 2017-08-14 16:17 | disposition home or self-care (01) | DRG 563 ==
LOC: NEPK 11:41 → NEDA 19:42 → N06B 21:37
PROVIDERS: ADMIT Family Medicine; ATTEND Family Medicine
PROC: 0HQMXZZ Repair Right Foot Skin, External Approach (ICD-10-PCS; 2017-08-13)
PROC: 3E10X8Z Irrigation of Skin and Mucous Membranes using Irrigating Substance (ICD-10-PCS; 2017-08-13)
PROC: 0HTRXZZ Resection of Toe Nail, External Approach (ICD-10-PCS; principal; 2017-08-13 17:00)
DX: S92.421B Displaced fracture of distal phalanx of right great toe, initial encounter for open fracture (principal); I10 Essential (primary) hypertension; W20.8XXA Other cause of strike by thrown, projected or falling object, initial encounter; F17.200 Nicotine dependence, unspecified, uncomplicated
CPT/HCPCS: 73630; 80048; 80053; 85025; 87015; 87070; 87102; 87116; 87205; 87206; 90471; 90714; 96365; 96367; 96375; E0113; J0131; J0690; J1170; J1580; J2270; J7030; L3260

== ENCOUNTER 2017-09-27 21:31 | Inpatient (IN) | payer SELFPAY ==
[~2017-09-27] VITALS: Ht 177.8 cm; Wt 87.2 kg
[~2017-09-27 21:31] MED LIST changes: +AUGM875T3 PO; +BACT800T5 PO; +HYDR-3516 PO; -Z.0.NO CURRENT MEDS; -ZITH250T PO
[2017-09-27] MEDS ORDERED: IOHEXOL 350 MG/ML 10 ML VIAL (for RAD DIAG) IVCONTRAST ONE (21:32)
[2017-09-27 21:33] VITALS: BP 132/104; PULSE 84; RESP 20; TEMP 98.1; O2SAT 98
[2017-09-27] MEDS ORDERED: MORPHINE SULFATE 2 MG/ML INJ IV PUSH ONE ×4 (22:00→23:00)
[2017-09-27] MEDS ORDERED: ONDANSETRON HCL 4 MG/2 ML VIAL IVP ONE (22:00)
[2017-09-27 22:12] VITALS: O2SAT 98
--- NOTE | 2017-09-27 22:20 | PD ---
HPI Chief Complaint: Abdominal Pain Time Seen by Provider: 21:49 Travel History International Travel<30 days: No Contact w/Intl Traveler<30days: No Traveled to known affect area: No History of Present Illness HPI 27-year-old male presents to emergency department complaining of right-sided abdominal pain for approximately 24 hours. States he was laying in bed yesterday and had a sudden onset of right abdominal pain described as sharp in nature and radiating to his back. Patient denies any foods or recent travel. Denies fever or chills. States he has associated nausea, dizziness, and scant vomiting. States he had a similar event for months ago that lasted 3 days the patient did not seek care for this. Patient denies any surgeries aside from a recent foot surgery for an open fracture. States he did celebrate New Years with drinking more alcohol than normal. His last episode was not preceded by alcohol, that he can remember. PFSH Past Medical History Medical History: Denies Significant Hx Diminished Hearing: No Past Surgical History Tonsillectomy: Yes Social History Alcohol Use: Yes (q 2 wks) Tobacco Use: Yes (1/2 ppd) Substance Use: No Allergies-Medications (Allergen,Severity, Reaction): Coded Allergies: meperidine (Unverified Allergy, Severe, as per mom, makes him go crazy, ) Reported Meds & Prescriptions Reported Meds & Active Scripts Active Hydrocodone-Acetamin 5-325 mg (Hydrocodone/Acetaminophen) 5 Mg-325 Mg Tablet 1- 2 Tab PO Q4H PRN Augmentin (Amoxicillin-Clavulanate) 875-125 Mg Tab 1 Tab PO BID Bactrim DS (Sulfamethoxazole-Trimethoprim) 800-160 Mg Tab 1 Tab PO BID Review of Systems Except as stated in HPI: all other systems reviewed are Neg Physical Exam Narrative GENERAL: A well-nourished in mild to moderate distress SKIN: Focused skin assessment warm/dry. HEAD: Atraumatic. Normocephalic. EYES: Pupils equal and round. No scleral icterus. No injection or drainage. ENT: No nasal bleeding or discharge. Mucous membranes pink and moist. NECK: Trachea midline. No JVD. CARDIOVASCULAR: Regular rate and rhythm. No murmur appreciated. RESPIRATORY: No accessory muscle use. Clear to auscultation. Breath sounds equal bilaterally. GASTROINTESTINAL: Abdomen soft, TTP to right abdominal area- positive McBurney's , no cullens, no Acharya Ojeda's sign, rebound tenderness, negative psoas, right lower quadrant and periumbilical tenderness MUSCULOSKELETAL: No obvious deformities. No clubbing. No cyanosis. No edema. NEUROLOGICAL: Awake and alert. No obvious cranial nerve deficits. Motor grossly within normal limits. Normal speech. PSYCHIATRIC: Appropriate mood and affect; insight and judgment normal. Data Data Last Documented VS Vital Signs Date Time Temp Pulse Resp B/P (MAP) Pulse Ox O2 Delivery O2 Flow Rate FiO2 09/27/17 23:20 16 09/27/17 22:12 98 Room Air 09/27/17 21:33 98.1 84 Orders Orders Complete Blood Count With Diff (09/27/17 21:55) Comprehensive Metabolic Panel (09/27/17 21:55) Lipase (09/27/17 21:55) Prothrombin Time / Inr (Pt) (09/27/17 21:55) Act Partial Throm Time (Ptt) (09/27/17 21:55) Urinalysis - C+S If Indicated (09/27/17 21:55) Ct Abd/Pel W Iv Contrast(Rout) (09/27/17 21:55) Iv Access Insert/Monitor (09/27/17 21:55) Ecg Monitoring (09/27/17 21:55) Oximetry (09/27/17 21:55) NPO (09/27/17 21:55) Ondansetron Inj (Zofran Inj) (09/27/17 22:00) Electrocardiogram (09/27/17 21:55) Morphine Inj (Morphine Inj) (09/27/17 22:00) Morphine Inj (Morphine Inj) (09/27/17 22:00) Iohexol 350 Inj (Omnipaque 350 Inj) (09/27/17 21:32) Morphine Inj (Morphine Inj) (09/27/17 23:00) Morphine Inj (Morphine Inj) (09/27/17 23:00) Pantoprazole Inj (Protonix Inj) (09/27/17 23:15) Admit Order (Ed Use Only) (09/27/17 23:22) Labs Laboratory Tests Test 09/27/17 21:50 09/27/17 22:30 White Blood Count 11.0 TH/MM3 Red Blood Count 4.60 MIL/MM3 Hemoglobin 14.8 GM/DL Hematocrit 42.9 % Mean Corpuscular Volume 93.3 FL Mean Corpuscular Hemoglobin 32.2 PG Mean Corpuscular Hemoglobin Concent 34.5 % Red Cell Distribution Width 13.2 % Platelet Count 228 TH/MM3 Mean Platelet Volume 8.1 FL Neutrophils (%) (Auto) 70.4 % Lymphocytes (%) (Auto) 19.6 % Monocytes (%) (Auto) 8.9 % Eosinophils (%) (Auto) 0.9 % Basophils (%) (Auto) 0.2 % Neutrophils # (Auto) 7.7 TH/MM3 Lymphocytes # (Auto) 2.1 TH/MM3 Monocytes # (Auto) 1.0 TH/MM3 Eosinophils # (Auto) 0.1 TH/MM3 Basophils # (Auto) 0.0 TH/MM3 CBC Comment DIFF FINAL Differential Comment Prothrombin Time 9.7 SEC Prothromb Time International Ratio 1.0 RATIO Activated Partial Thromboplast Time 25.8 SEC Blood Urea Nitrogen 17 MG/DL Creatinine 1.18 MG/DL Random Glucose 119 MG/DL Total Protein 7.8 GM/DL Albumin 4.2 GM/DL Calcium Level 9.0 MG/DL Alkaline Phosphatase 72 U/L Aspartate Amino Transf (AST/SGOT) 21 U/L Alanine Aminotransferase (ALT/SGPT) 35 U/L Total Bilirubin 0.6 MG/DL Sodium Level 138 MEQ/L Potassium Level 3.5 MEQ/L Chloride Level 104 MEQ/L Carbon Dioxide Level 24.9 MEQ/L Anion Gap 9 MEQ/L Lipase 3180 U/L Urine Color LIGHT-YELLOW Urine Turbidity CLEAR Urine pH 6.0 Urine Specific [place] 1.008 Urine Protein NEG mg/dL Urine Glucose (UA) NEG mg/dL Urine Ketones NEG mg/dL Urine Occult Blood TRACE Urine Nitrite NEG Urine Bilirubin NEG Urine Urobilinogen LESS THAN 2.0 MG/DL Urine Leukocyte Esterase NEG Urine RBC 1 /hpf Microscopic Urinalysis Comment CULT NOT INDICATED MDM Medical Decision Making Medical Screen Exam Complete: Yes Emergency Medical Condition: Yes Differential Diagnosis Acute pancreatitis, nephrolithiasis, duodenitis, gastritis, cholelithiasis Narrative Course 23-year-old male presents to emergency department complaining of right-sided abdominal pain for approximately 24 hours. States he was laying in bed yesterday and had a sudden onset of right abdominal pain described as sharp in nature and radiating to his back. Patient denies any foods or recent travel. Denies fever or chills. States he has associated nausea, dizziness, and scant vomiting. States he had a similar event for months ago that lasted 3 days the patient did not seek care for this. Patient denies any surgeries aside from a recent foot surgery for an open fracture. States he did celebrate New Years with drinking more alcohol than normal. His last episode was not preceded by alcohol. States he drinks 3-4 times per week. He quit tobacco 3-4 months ago and is vaping. Vital Signs stable. Laboratory Tests Test 09/27/17 21:50 09/27/17 22:30 White Blood Count 11.0 TH/MM3 Red Blood Count 4.60 MIL/MM3 Hemoglobin 14.8 GM/DL Hematocrit 42.9 % Mean Corpuscular Volume 93.3 FL Mean Corpuscular Hemoglobin 32.2 PG Mean Corpuscular Hemoglobin Concent 34.5 % Red Cell Distribution Width 13.2 % Platelet Count 228 TH/MM3 Mean Platelet Volume 8.1 FL Neutrophils (%) (Auto) 70.4 % Lymphocytes (%) (Auto) 19.6 % Monocytes (%) (Auto) 8.9 % Eosinophils (%) (Auto) 0.9 % Basophils (%) (Auto) 0.2 % Neutrophils # (Auto) 7.7 TH/MM3 Lymphocytes # (Auto) 2.1 TH/MM3 Monocytes # (Auto) 1.0 TH/MM3 Eosinophils # (Auto) 0.1 TH/MM3 Basophils # (Auto) 0.0 TH/MM3 CBC Comment DIFF FINAL Differential Comment Prothrombin Time 9.7 SEC Prothromb Time International Ratio 1.0 RATIO Activated Partial Thromboplast Time 25.8 SEC Blood Urea Nitrogen 17 MG/DL Creatinine 1.18 MG/DL Random Glucose 119 MG/DL Total Protein 7.8 GM/DL Albumin 4.2 GM/DL Calcium Level 9.0 MG/DL Alkaline Phosphatase 72 U/L Aspartate Amino Transf (AST/SGOT) 21 U/L Alanine Aminotransferase (ALT/SGPT) 35 U/L Total Bilirubin 0.6 MG/DL Sodium Level 138 MEQ/L Potassium Level 3.5 MEQ/L Chloride Level 104 MEQ/L Carbon Dioxide Level 24.9 MEQ/L Anion Gap 9 MEQ/L Lipase 3180 U/L Urine Color LIGHT-YELLOW Urine Turbidity CLEAR Urine pH 6.0 Urine Specific [place] 1.008 Urine Protein NEG mg/dL Urine Glucose (UA) NEG mg/dL Urine Ketones NEG mg/dL Urine Occult Blood TRACE Urine Nitrite NEG Urine Bilirubin NEG Urine Urobilinogen LESS THAN 2.0 MG/DL Urine Leukocyte Esterase NEG Urine RBC 1 /hpf Microscopic Urinalysis Comment CULT NOT INDICATED Mild decrease in pain with morphine 4 mg. Patient will be administered another 4 mg morphine. Protonix 40mg IV initiated. Patient will be admitted with acute pancreatitis and duodenitis. Thank you Dr. Rothman for taking this patient. Diagnosis Primary Impression: Acute pancreatitis Qualified Codes: K85.80 - Other acute pancreatitis without necrosis or infection Additional Impression: Duodenitis Admitting Information Admitting Physician Requests: Admit Condition: Stable Yue Carrizales Sep 27, 2017 22:20
[2017-09-27 22:25] LABS: AUTOMATED NEUTROPHIL # 7.7 TH/MM3 (1.8-7.7); BASOPHIL % 0.2 % (0.0-2.0); EOSINOPHIL # 0.1 TH/MM3 (0-0.4); EOSINOPHIL % 0.9 % (0.0-4.0); HEMATOCRIT 42.9 % (39.0-51.0); HEMOGLOBIN 14.8 GM/DL (13.0-17.0); LYMPH % 19.6 % (9.0-44.0); LYMPHOCYTE # 2.1 TH/MM3 (1.0-4.8); MEAN CELL VOLUME 93.3 FL (80.0-100.0); MEAN CORPUSCULAR HEMOGLOBIN 32.2 PG (27.0-34.0); MEAN CORPUSCULAR HGB CONC 34.5 % (32.0-36.0); MEAN PLATELET VOLUME 8.1 FL (7.0-11.0); MONO % 8.9 % (0.0-8.0); NEUT % 70.4 % (16.0-70.0); PLATELET COUNT 228 TH/MM3 (150-450); RED CELL DISTRIBUTION WIDTH 13.2 % (11.6-17.2)
[2017-09-27 22:33] LABS: ALBUMIN 4.2 GM/DL (3.4-5.0); AST (GOT) 21 U/L (15-37); BICARBONATE 24.9 MEQ/L (21.0-32.0); BLOOD UREA NITROGEN 17 MG/DL (7-18); CHLORIDE 104 MEQ/L (98-107); CREATININE 1.18 MG/DL (0.60-1.30); GLUCOSE,RANDOM 119 MG/DL (74-106); SODIUM (NA) 138 MEQ/L (136-145)
[2017-09-27 22:34] LABS: ALT (GPT) 35 U/L (12-78)
[2017-09-27 22:36] LABS: ALKALINE PHOSPHATASE 72 U/L (45-117); LIPASE 3180 U/L (73-393); TOTAL BILIRUBIN ADULT 0.6 MG/DL (0.2-1.0); TOTAL PROTEIN 7.8 GM/DL (6.4-8.2)
[2017-09-27 22:49] LABS: PROTHROMBIN TIME - PATIENT 9.7 SEC (9.8-11.6)
--- NOTE | 2017-09-27 22:55 | RADRPT ---
EXAM DATE/TIME: 09/27/2017 22:38 [facility] COMPARISON: No previous studies available for comparison. INDICATIONS : Right upper qaudrant pain. IV CONTRAST: 94 cc Omnipaque 350 (iohexol) IV ORAL CONTRAST: No oral contrast ingested. RADIATION DOSE: 8.06 CTDIvol (mGy) MEDICAL HISTORY : None SURGICAL HISTORY : None. ENCOUNTER: Initial ACUITY: 1 day PAIN SCALE: 8/10 LOCATION: Right upper quadrant TECHNIQUE: Volumetric scanning of the abdomen and pelvis was performed. Using automated exposure control and ad justment of the mA and/or kV according to patient size, radiation dose was kept as low as reasonably achievable to obtain optimal diagnostic quality images. DICOM format image data is available electro nically for review and comparison. FINDINGS: LOWER LUNGS: The visualized lower lungs are clear. LIVER: Homogeneous density without lesion. There is no dilation of the biliary tree. No calcified gallston es. SPLEEN: Normal size without lesion. PANCREAS: Inflammatory changes along the pancreatic head and uncinate process which also involves the duodenum. Minimal adjacent fluid in the retroperitoneum. KIDNEYS: Normal in size and shape. There is no mass, stone or hydronephrosis. ADRENAL GLANDS: Within normal limits. VASCULAR: There is no aortic aneurysm. BOWEL/MESENTERY: The stomach, small bowel, and colon demonstrate no acute abnormality. There is no free intraperitone al air or fluid. Normal appendix. ABDOMINAL WALL: Within normal limits. RETROPERITONEUM: There is no lymphadenopathy. BLADDER: No wall thickening or mass. REPRODUCTIVE: Within normal limits. INGUINAL: There is no lymphadenopathy or hernia. MUSCULOSKELETAL: Within normal limits for patient age. CONCLUSION: 1. Inflammatory changes adjacent to the pancreatic head/uncinate process and duodenum could be relate d to pancreatitis or duodenitis. Correlation with amylase/lipase levels recommended. Minimal fluid in the retroperitoneum. Jose Nieves MD on September 27, 2017 at 22:51 Board Certified Radiologist. This report was verified electronically.
[2017-09-27 23:00] LABS: BILIRUBIN, URINE NEG (NEG); BLOOD, URINE TRACE (NEG); GLUCOSE,URINE NEG (NEG); KETONE, URINE NEG (NEG); NITRITE,URINE NEG (NEG); URINE COLOR LIGHT-YELLOW (YELLW/STRAW); URINE LEUKOCYTE ESTERASE NEG (NEG)
[2017-09-27] MEDS ORDERED: PANTOPRAZOLE SODIUM 40 MG VIAL IV PUSH ONE (23:15)
[2017-09-27] MEDS ORDERED: ONDANSETRON HCL 4 MG/2 ML VIAL IVP PRN (23:30)
[2017-09-27] MEDS ORDERED: LACTULOSE SYRUP 20 GM/30 ML CUP PO PRN (23:30)
[2017-09-27] MEDS ORDERED: NALOXONE HCL 0.4 MG/ML AMP IV PUSH PRN (23:30)
[2017-09-27] MEDS ORDERED: SENNOSIDES 8.6 MG TAB PO PRN (23:30)
[2017-09-27] MEDS ORDERED: MAGNESIUM HYDROXIDE SUSP 30 ML CUP PO PRN (23:30)
[2017-09-27] MEDS ORDERED: ACETAMINOPHEN 325 MG TAB PO PRN (23:30)
[2017-09-27] MEDS ORDERED: BISACODYL 10 MG SUPP RECTAL PRN (23:30)
[2017-09-28] VITALS (9 sets, daily range): BP systolic 107–151; BP diastolic 65–98; PULSE 70–94; RESP 16–30; TEMP 97.6–98.6; O2SAT 96–99
[2017-09-28] MEDS: SODIUM CHLOR 0.9% 1000 ML INJ 1,000 ML IV SCH ×4 (01:08→23:35)
[2017-09-28] MEDS: MORPHINE SULFATE 2 MG/ML INJ IV PUSH PRN ×8 (01:14→23:35)
[2017-09-28] MEDS ORDERED: FLUMAZENIL 0.5 MG/5 ML VIAL IV PUSH PRN (01:45)
[2017-09-28] MEDS ORDERED: LORazepam 2 MG TAB PO PRN (01:45)
[2017-09-28] MEDS ORDERED: LORazepam 1 MG TAB PO PRN (01:45)
[2017-09-28] MEDS ORDERED: LORazepam 2 MG/ML VIAL IV PUSH PRN ×4 (01:45)
--- NOTE | 2017-09-28 01:46 | HHI.HP ---
[facility] Primary Care Physician No Primary Care Physician Admission Diagnosis Acute pancreatitis, duodenitis Diagnoses: Travel History International Travel<30 Days: No Contact w/Intl Traveler <30 Da: No Traveled to Known Affected Are: No History of Present Illness 27-year-old male with no significant past medical history presents to the emergency department for the evaluation of abdominal pain. The patient reports his abdominal pain began yesterday. He describes it as epigastric, radiating to his back and severe in nature. He endorses constant nausea without emesis. Lipase 3180. CT of the abdomen/pelvis significant for inflammatory changes adjacent to the pancreatic head/uncinate process and the duodenum. No gallstones or dilation of the biliary tree noted. Patient reports he had similar symptoms for approximately 3 days 4 months ago that resolved on its own. He endorses drinking 3-4 beers approximately twice weekly. Review of Systems Denies fever or chills Denies blurry vision, otorrhea, rhinorrhea Denies sore throat and cough No chest pain, palpitations, shortness of breath Positive abdominal pain Denies constipation/diarrhea/vomiting. Positive nausea Denies muscle pain/weakness No rashes Past Family Social History Past Medical History Colon polyps diagnosed at age 12 Past Surgical History Colonoscopy at age 12 which resulted in the removal of benign polyps Tonsillectomy Reported Medications None Allergies: Coded Allergies: meperidine (Unverified Allergy, Severe, as per mom, makes him go crazy, ) Family History Denies family history of CAD/DM Social History Quit tobacco 6 months ago. Drinks approximately 3-4 beers twice weekly. Positive marijuana. Denies all other illicit drugs. Physical Exam Vital Signs Vital Signs Date Time Temp Pulse Resp B/P (MAP) Pulse Ox O2 Delivery O2 Flow Rate FiO2 09/28/17 00:50 98.4 70 30 144/98 (113) 99 09/27/17 23:20 16 09/27/17 23:20 16 09/27/17 23:20 16 09/27/17 22:12 98 Room Air 09/27/17 21:33 98.1 84 20 132/104 (113) 98 Physical Exam GENERAL: male lying in bed SKIN: No rashes, ecchymoses or lesions. Cool and dry. HEAD: Atraumatic. Normocephalic. No temporal or scalp tenderness. EYES: Pupils equal round and reactive. Extraocular motions intact. No scleral icterus. No injection or drainage. ENT: Nose without bleeding, purulent drainage or septal hematoma. Throat without erythema, tonsillar hypertrophy or exudate. Uvula midline. Airway patent. NECK: Trachea midline. No JVD or lymphadenopathy. Supple, nontender, no meningeal signs. CARDIOVASCULAR: Regular rate and rhythm without murmurs, gallops, or rubs. RESPIRATORY: Clear to auscultation. Breath sounds equal bilaterally. No wheezes , rales, or rhonchi. GASTROINTESTINAL: Abdomen soft, nondistended. Exquisitely tender to palpation in the epigastric region with radiation to the right lower quadrant. No hepato- splenomegaly, or palpable masses. No guarding. MUSCULOSKELETAL: Extremities without clubbing, cyanosis, or edema. No joint tenderness, effusion, or edema noted. No calf tenderness. NEUROLOGICAL: Awake and alert. Cranial nerves II through XII intact. Motor and sensory grossly within normal limits. Normal speech. Laboratory Laboratory Tests Test 09/27/17 21:50 09/27/17 22:30 White Blood Count 11.0 Red Blood Count 4.60 Hemoglobin 14.8 Hematocrit 42.9 Mean Corpuscular Volume 93.3 Mean Corpuscular Hemoglobin 32.2 Mean Corpuscular Hemoglobin Concent 34.5 Red Cell Distribution Width 13.2 Platelet Count 228 Mean Platelet Volume 8.1 Neutrophils (%) (Auto) 70.4 Lymphocytes (%) (Auto) 19.6 Monocytes (%) (Auto) 8.9 Eosinophils (%) (Auto) 0.9 Basophils (%) (Auto) 0.2 Neutrophils # (Auto) 7.7 Lymphocytes # (Auto) 2.1 Monocytes # (Auto) 1.0 Eosinophils # (Auto) 0.1 Basophils # (Auto) 0.0 CBC Comment DIFF FINAL Differential Comment Prothrombin Time 9.7 Prothromb Time International Ratio 1.0 Activated Partial Thromboplast Time 25.8 Blood Urea Nitrogen 17 Creatinine 1.18 Random Glucose 119 Total Protein 7.8 Albumin 4.2 Calcium Level 9.0 Alkaline Phosphatase 72 Aspartate Amino Transf (AST/SGOT) 21 Alanine Aminotransferase (ALT/SGPT) 35 Total Bilirubin 0.6 Sodium Level 138 Potassium Level 3.5 Chloride Level 104 Carbon Dioxide Level 24.9 Anion Gap 9 Lipase 3180 Urine Color LIGHT-YELLOW Urine Turbidity CLEAR Urine pH 6.0 Urine Specific [place] 1.008 Urine Protein NEG Urine Glucose (UA) NEG Urine Ketones NEG Urine Occult Blood TRACE Urine Nitrite NEG Urine Bilirubin NEG Urine Urobilinogen LESS THAN 2.0 Urine Leukocyte Esterase NEG Urine RBC 1 Microscopic Urinalysis Comment CULT NOT INDICATED Result Diagram: 09/27/17214909/27/172149 Caprini VTE Risk Assessment Caprini VTE Risk Assessment: No/Low Risk (score <= 1) Caprini Risk Assessment Model Point Value = 1 Point Value = 2 Point Value = 3 Point Value = 5 Age 41-60 Minor surgery BMI > 25 kg/m2 Swollen legs Varicose veins or History of unexplained or recurrent spontaneous Oral contraceptives or hormone replacement Sepsis (< 1 month) Serious lung disease, including pneumonia (< 1 month) Abnormal pulmonary function Acute myocardial infarction Congestive heart failure (< 1 month) History of inflammatory bowel disease Medical patient at bed rest Age 61-74 Arthroscopic surgery Major open surgery (> 45 min) Laparoscopic surgery (> 45 min) Malignancy Confined to bed (> 72 hours) Immobilizing plaster cast Central venous access Age >= 75 History of VTE Family history of VTE Factor V Leiden Prothrombin [id number] Lupus anticoagulant Anticardiolipin antibodies Elevated serum homocysteine Heparin-induced thrombocytopenia Other congenital or acquired thrombophilia Stroke (< 1 month) Elective arthroplasty Hip, pelvis, or leg fracture Acute spinal cord injury (< 1 month) Prophylaxis Regimen Total Risk Factor Score Risk Level Prophylaxis Regimen 0-1 Low Early ambulation 2 Moderate Order ONE of the following: *Sequential Compression Device (SCD) *Heparin 5000 units SQ BID 3-4 Higher Order ONE of the following medications: *Heparin 5000 units SQ TID *Enoxaparin/Lovenox 40 mg SQ daily (WT < 150 kg, CrCl > 30 mL/min) *Enoxaparin/Lovenox 30 mg SQ daily (WT < 150 kg, CrCl > 10-29 mL/min) *Enoxaparin/Lovenox 30 mg SQ BID (WT < 150 kg, CrCl > 30 mL/min) AND/OR *Sequential Compression Device (SCD) 5 or more Highest Order ONE of the following medications: *Heparin 5000 units SQ TID (Preferred with Epidurals) *Enoxaparin/Lovenox 40 mg SQ daily (WT < 150 kg, CrCl > 30 mL/min) *Enoxaparin/Lovenox 30 mg SQ daily (WT < 150 kg, CrCl > 10-29 mL/min) *Enoxaparin/Lovenox 30 mg SQ BID (WT < 150 kg, CrCl > 30 mL/min) AND *Sequential Compression Device (SCD) Assessment and Plan Assessment and Plan Assessment/plan: 1. Acute pancreatitis Lipase 3180 CT abdomen/pelvis with inflammatory changes along the pancreatic head and uncinate process which also involve the duodenum No evidence of gallstones or biliary dilation LFTs wnl Morphine for pain Nothing by mouth Aggressive IV fluid hydration Patient with significant alcohol intake, recommend cessation FEN NPO NS at 150 cc/hr Electrolytes: monitor and replete prn SCDs CIWA protocol Physician Certification 2 Midnight Certification Type: Admission for Inpatient Services Order for Inpatient Services The services are ordered in accordance with Medicare regulations or non- Medicare payer requirements, as applicable. In the case of services not specified as inpatient-only, they are appropriately provided as inpatient services in accordance with the 2-midnight benchmark. Estimated LOS (days): 2 2 days is the estimated time the patient will need to remain in the hospital, assuming treatment plan goals are met and no additional complications. Post-Hospital Plan: Not yet determined Anna Rothman MD Sep 28, 2017 01:46
[2017-09-28 06:59] LABS: AUTOMATED NEUTROPHIL # 8.3 TH/MM3 (1.8-7.7); BASOPHIL % 0.1 % (0.0-2.0); EOSINOPHIL # 0.1 TH/MM3 (0-0.4); EOSINOPHIL % 0.7 % (0.0-4.0); HEMATOCRIT 39.8 % (39.0-51.0); HEMOGLOBIN 13.8 GM/DL (13.0-17.0); LYMPH % 20.7 % (9.0-44.0); LYMPHOCYTE # 2.5 TH/MM3 (1.0-4.8); MEAN CORPUSCULAR HEMOGLOBIN 32.6 PG (27.0-34.0); MEAN CORPUSCULAR HGB CONC 34.7 % (32.0-36.0); MEAN PLATELET VOLUME 8.3 FL (7.0-11.0); MONO % 10.2 % (0.0-8.0); MONOCYTE # 1.2 TH/MM3 (0-0.9); NEUT % 68.3 % (16.0-70.0); PLATELET COUNT 206 TH/MM3 (150-450); RED BLOOD COUNT 4.24 MIL/MM3 (4.50-5.90); RED CELL DISTRIBUTION WIDTH 13.5 % (11.6-17.2); WHITE BLOOD COUNT 12.1 TH/MM3 (4.0-11.0)
[2017-09-28 07:09] LABS: ALBUMIN 3.9 GM/DL (3.4-5.0); ALT (GPT) 29 U/L (12-78); AST (GOT) 15 U/L (15-37); BICARBONATE 23.1 MEQ/L (21.0-32.0); BLOOD UREA NITROGEN 14 MG/DL (7-18); CALCIUM 8.8 MG/DL (8.5-10.1); CHLORIDE 107 MEQ/L (98-107); CREATININE 1.02 MG/DL (0.60-1.30); GLUCOSE,RANDOM 101 MG/DL (74-106); SODIUM (NA) 139 MEQ/L (136-145)
[2017-09-28 07:12] LABS: ALKALINE PHOSPHATASE 65 U/L (45-117); LIPASE 3082 U/L (73-393); TOTAL PROTEIN 7.2 GM/DL (6.4-8.2)
[2017-09-28] MEDS: SODIUM CHLORIDE 0.9% FLUSH 10 ML FLUSH IV FLUSH SCH ×2 (07:51→20:29)
[2017-09-28] MEDS: DOCUSATE SODIUM 50 MG/SENNA 8.6 MG TAB PO SCH ×3 (07:51→21:00)
--- NOTE | 2017-09-28 10:10 | EKG ---
Date Performed: 09/27/2017 Time Performed: 22:12:10 PTAGE: 27 years EKG: Sinus rhythm WITH SINUS ARRHYTHMIA NORMAL ECG NO PREVIOUS TRACING DOCTOR: Jung Neely Interpretating Date/Time 09/28/2017 10:08:12
--- NOTE | 2017-09-28 10:49 | HHI.PR ---
Subjective Remarks Follow-up acute recurrent pancreatitis 09/28/17-patient seen and examined, reports improvement of abdominal pain. Denies any nausea or vomiting. Currently nothing by mouth. Lipase still up 3000+ Objective Vitals Vital Signs Date Time Temp Pulse Resp B/P (MAP) Pulse Ox O2 Delivery O2 Flow Rate FiO2 09/28/17 08:06 98.6 79 17 124/69 (87) 96 09/28/17 04:12 75 09/28/17 04:00 98.4 81 22 137/89 (105) 98 09/28/17 02:11 73 09/28/17 01:30 Room Air 09/28/17 00:50 98.4 70 30 144/98 (113) 99 09/27/17 23:20 16 09/27/17 23:20 16 09/27/17 23:20 16 09/27/17 22:12 98 Room Air 09/27/17 21:33 98.1 84 20 132/104 (113) 98 I/O 09/27/17 09/27/17 09/27/17 09/28/17 09/28/17 09/28/17 07:00 15:00 23:00 07:00 15:00 23:00 Intake Total 300 ml Output Total 500 ml Balance -200 ml Intake Oral 300 ml Output Urine Total 500 ml # Bowel Movements 0 Result Diagram: 09/28/17 0555 09/28/17 0555 Imaging Last Impressions Abdomen/Pelvis CT 09/27/172154 Signed Impressions: Service Date/Time: Wednesday, September 27, 2017 22:38 - CONCLUSION: 1. Inflammatory changes adjacent to the pancreatic head/uncinate process and duodenum could be related to pancreatitis or duodenitis. Correlation with amylase/lipase levels recommended. Minimal fluid in the retroperitoneum. Jose Nieves MD Objective Remarks GENERAL: NAD SKIN: Warm and dry. HEAD: Normocephalic. EYES: No scleral icterus. No injection or drainage. NECK: Supple, trachea midline. No JVD or lymphadenopathy. CARDIOVASCULAR: Regular rate and rhythm without murmurs, gallops, or rubs. RESPIRATORY: Breath sounds equal bilaterally. No accessory muscle use. GASTROINTESTINAL: Abdomen soft, mildly tender, nondistended. +BS MUSCULOSKELETAL: No cyanosis, or edema. BACK: Nontender without obvious deformity. No CVA tenderness. A/P Problem List: (1) Acute recurrent pancreatitis ICD Code: K85.90 - Acute pancreatitis without necrosis or infection, unspecified Assessment and Plan 27-year-old man with Acute recurrent pancreatitis Continue with medical management with aggressive IV fluid hydration, parenteral pain management, nothing by mouth, and lipase monitoring. Alcohol cessation strongly advised Alcohol abuse Alcohol counselling cessation provided CIWA, Rally pack DVT prophylaxis: Ambulatory Jose Scott MD Sep 28, 2017 10:49
[2017-09-28] MEDS ORDERED: HYDROmorphone HCL PF 2 MG/ML VIAL IV PUSH ONE (22:15)
[2017-09-28] MEDS: SODIUM CHLORIDE 0.9% FLUSH 10 ML FLUSH IV FLUSH PRN ×2 (22:19→23:35)
[2017-09-29 00:23] VITALS: BP 122/63; PULSE 92; RESP 16; TEMP 98.4; O2SAT 97
[2017-09-29] MEDS: MORPHINE SULFATE 2 MG/ML INJ IV PUSH PRN ×3 (02:41→09:05)
[2017-09-29 06:49] VITALS: BP 120/65; PULSE 90; RESP 16; TEMP 98.2; O2SAT 95
[2017-09-29 08:16] VITALS: BP 121/70; PULSE 81; RESP 16; TEMP 99.3; O2SAT 94
[2017-09-29 08:53] LABS: BASOPHIL # 0.1 TH/MM3 (0-0.2); BASOPHIL % 0.6 % (0.0-2.0); EOSINOPHIL # 0.4 TH/MM3 (0-0.4); EOSINOPHIL % 3.6 % (0.0-4.0); HEMATOCRIT 37.1 % (39.0-51.0); HEMOGLOBIN 12.8 GM/DL (13.0-17.0); LYMPHOCYTE # 2.7 TH/MM3 (1.0-4.8); MEAN CELL VOLUME 95.1 FL (80.0-100.0); MEAN CORPUSCULAR HEMOGLOBIN 32.8 PG (27.0-34.0); MEAN CORPUSCULAR HGB CONC 34.5 % (32.0-36.0); MEAN PLATELET VOLUME 8.3 FL (7.0-11.0); MONO % 11.1 % (0.0-8.0); MONOCYTE # 1.1 TH/MM3 (0-0.9); NEUT % 58.7 % (16.0-70.0); PLATELET COUNT 189 TH/MM3 (150-450); RED CELL DISTRIBUTION WIDTH 13.1 % (11.6-17.2); WHITE BLOOD COUNT 10.2 TH/MM3 (4.0-11.0)
[2017-09-29] MEDS: SODIUM CHLORIDE 0.9% FLUSH 10 ML FLUSH IV FLUSH SCH ×2 (09:08→21:00)
[2017-09-29] MEDS: DOCUSATE SODIUM 50 MG/SENNA 8.6 MG TAB PO SCH ×2 (09:08→21:04)
[2017-09-29 09:14] LABS: ALBUMIN 3.6 GM/DL (3.4-5.0); AST (GOT) 12 U/L (15-37); BICARBONATE 23.9 MEQ/L (21.0-32.0); BLOOD UREA NITROGEN 9 MG/DL (7-18); CALCIUM 8.8 MG/DL (8.5-10.1); CHLORIDE 101 MEQ/L (98-107); CREATININE 0.87 MG/DL (0.60-1.30); GLOMERULAR FILTRATION RATE 104 ML/MIN (>89); GLUCOSE,RANDOM 67 MG/DL (74-106); LIPASE 961 U/L (73-393); SODIUM (NA) 136 MEQ/L (136-145)
[2017-09-29 09:15] LABS: ALT (GPT) 24 U/L (12-78)
[2017-09-29 09:17] LABS: ALKALINE PHOSPHATASE 63 U/L (45-117); TOTAL BILIRUBIN ADULT 1.2 MG/DL (0.2-1.0); TOTAL PROTEIN 7.1 GM/DL (6.4-8.2)
--- NOTE | 2017-09-29 10:50 | HHI.PR ---
Subjective Remarks Follow-up acute recurrent pancreatitis 09/28/17-patient seen and examined, reports improvement of abdominal pain. Denies any nausea or vomiting. Currently nothing by mouth. Lipase still up 3000+ 09/29/17-patient seen and examined, complained of severe abdominal pain this a.m. Denies any nausea and vomiting.+constipation. Lipase trending down. Objective Vitals Vital Signs Date Time Temp Pulse Resp B/P (MAP) Pulse Ox O2 Delivery O2 Flow Rate FiO2 09/29/17 09:31 Room Air 09/29/17 08:16 99.3 81 16 121/70 (87) 94 09/29/17 06:49 98.2 90 16 120/65 (83) 95 09/29/17 00:23 98.4 92 16 122/63 (82) 97 09/28/17 20:32 98.4 94 16 151/66 (94) 98 09/28/17 20:32 Room Air 09/28/17 16:06 97.6 84 16 107/65 (79) 97 09/28/17 12:06 97.9 79 17 129/82 (98) 97 I/O 09/28/17 09/28/17 09/28/17 09/29/17 09/29/17 09/29/17 07:00 15:00 23:00 07:00 15:00 23:00 Intake Total 300 ml 0 ml 480 ml Output Total 500 ml Balance -200 ml 0 ml 480 ml Intake Oral 300 ml 0 ml 480 ml Output Urine Total 500 ml # Voids 6 # Bowel Movements 0 2 Result Diagram: 09/29/17 0608 09/29/17 0608 Objective Remarks GENERAL: NAD SKIN: Warm and dry. HEAD: Normocephalic. EYES: No scleral icterus. No injection or drainage. NECK: Supple, trachea midline. No JVD or lymphadenopathy. CARDIOVASCULAR: Regular rate and rhythm without murmurs, gallops, or rubs. RESPIRATORY: Breath sounds equal bilaterally. No accessory muscle use. GASTROINTESTINAL: Abdomen soft, mildly tender, nondistended. +BS MUSCULOSKELETAL: No cyanosis, or edema. BACK: Nontender without obvious deformity. No CVA tenderness. A/P Problem List: (1) Acute recurrent pancreatitis ICD Code: K85.90 - Acute pancreatitis without necrosis or infection, unspecified Assessment and Plan 27-year-old man with Acute recurrent pancreatitis Continue with medical management with aggressive IV fluid hydration, parenteral pain management, nothing by mouth, and lipase monitoring. Check abdominal ultrasound Alcohol cessation strongly advised Constipation Stool softener Alcohol abuse Alcohol counselling cessation provided Jessica MACKEY DVT prophylaxis: Ambulatory Jose Scott MD Sep 29, 2017 10:50
[2017-09-29] MEDS ORDERED: POTASSIUM CHLORIDE 25 MEQ EFFERVESCENT TAB PO ONE (11:00)
[2017-09-29] MEDS: SODIUM CHLOR 0.9% 1000 ML INJ 1,000 ML IV SCH ×3 (12:02→21:06)
[2017-09-29] MEDS: KETOROLAC TROMETHAMINE 30 MG/ML (IVP) VIAL IV PUSH PRN ×2 (12:11→18:00)
[2017-09-29 12:15] VITALS: BP 125/74; PULSE 100; RESP 17; TEMP 97.4; O2SAT 96
[2017-09-29 16:16] VITALS: BP 114/56; PULSE 77; RESP 17; TEMP 97.7; O2SAT 97
--- NOTE | 2017-09-29 17:17 | RADRPT ---
EXAM DATE/TIME: 09/29/2017 16:14 [place] COMPARISON: No previous studies available for comparison. INDICATIONS : Abdominal pain. MEDICAL HISTORY : Inflammatory bowel disease. Gastroesophageal reflux disease. Tobacco use. SURGICAL HISTORY : Tonsillectomy. ENCOUNTER: Initial ACUITY: 3 days PAIN SCORE: 3/10 LOCATION: Abdomen. MEASUREMENTS: LIVER: 15.6 cm length COMMON DUCT: 5 mm RIGHT KIDNEY: 10.8 x 5.4 x 4.6 cm LEFT KIDNEY: 11.0 x 4.9 x 6.2 cm SPLEEN: 11.1 cm length AORTA: 2.4cm maximal FINDINGS: LIVER: Normal echotexture without focal lesion or ductal dilatation. COMMON DUCT: No intraluminal mass or stone visualized. GALLBLADDER: Contains no stones, demonstrates no wall thickening or pericholecystic fluid. PANCREAS: The pancreas is not visualized secondary to overlying bowel gas. RIGHT KIDNEY: No hydronephrosis, stone or mass. LEFT KIDNEY: No hydronephrosis, stone or mass. SPLEEN: No focal lesion. AORTA: Non aneurysmal. IVC: Within normal limits. CONCLUSION: 1. Unremarkable ultrasound examination of the abdomen. Nonvisualization of the pancreas Niels Trammell MD on September 29, 2017 at 17:09 Board Certified Radiologist. This report was verified electronically.
[2017-09-29 20:00] VITALS: BP 121/69; PULSE 85; RESP 18; TEMP 98.1; O2SAT 96
[2017-09-30] VITALS: BP 129/80; PULSE 80; RESP 18; TEMP 98.3; O2SAT 99
[2017-09-30] MEDS: KETOROLAC TROMETHAMINE 30 MG/ML (IVP) VIAL IV PUSH PRN ×2 (00:07→09:33)
[2017-09-30] MEDS: SODIUM CHLORIDE 0.9% FLUSH 10 ML FLUSH IV FLUSH PRN (00:07)
[2017-09-30 04:00] VITALS: BP 108/58; PULSE 75; RESP 16; TEMP 97.9; O2SAT 96
[2017-09-30] MEDS: SODIUM CHLOR 0.9% 1000 ML INJ 1,000 ML IV SCH (04:48)
[2017-09-30 06:31] LABS: BICARBONATE 22.9 MEQ/L (21.0-32.0); CALCIUM 8.3 MG/DL (8.5-10.1); CREATININE 0.76 MG/DL (0.60-1.30)
[2017-09-30 08:06] VITALS: BP 111/58; PULSE 70; RESP 20; TEMP 97.8; O2SAT 98
[2017-09-30] MEDS: SODIUM CHLORIDE 0.9% FLUSH 10 ML FLUSH IV FLUSH SCH (09:33)
[2017-09-30] MEDS: DOCUSATE SODIUM 50 MG/SENNA 8.6 MG TAB PO SCH (09:34)
[2017-09-30] MEDS ORDERED: TRAM50 PO (10:03)
--- NOTE | 2017-09-30 12:44 | HHI.PR ---
Subjective Remarks Follow-up acute recurrent pancreatitis 09/28/17-patient seen and examined, reports improvement of abdominal pain. Denies any nausea or vomiting. Currently nothing by mouth. Lipase still up 3000+ 09/29/17-patient seen and examined, complained of severe abdominal pain this a.m. Denies any nausea and vomiting.+constipation. Lipase trending down. 09/30/17-patient seen and examined, he was doing okay until he had full liquid diet this AM and complained of abdominal pain. Lipase down to 463 Objective Vitals Vital Signs Date Time Temp Pulse Resp B/P (MAP) Pulse Ox O2 Delivery O2 Flow Rate FiO2 09/30/17 08:06 97.8 70 20 111/58 (75) 98 09/30/17 04:00 97.9 75 16 108/58 (75) 96 09/30/17 00:00 98.3 80 18 129/80 (96) 99 09/29/17 20:00 Room Air 09/29/17 20:00 98.1 85 18 121/69 (86) 96 09/29/17 16:16 97.7 77 17 114/56 (75) 97 I/O 09/29/17 09/29/17 09/29/17 09/30/17 09/30/17 09/30/17 07:00 15:00 23:00 07:00 15:00 23:00 Intake Total 480 ml 720 ml Output Total 450 ml Balance 480 ml 720 ml -450 ml Intake Oral 480 ml 720 ml Output Urine Total 450 ml # Voids 3 # Bowel Movements 0 Result Diagram: 09/29/17 0608 09/30/17 0430 Imaging Last Impressions Abdomen Ultrasound 09/29/17 0000 Signed Impressions: Service Date/Time: September 16:14 - CONCLUSION: 1. Unremarkable ultrasound examination of the abdomen. Nonvisualization of the pancreas Niels Trammell MD Abdomen/Pelvis CT 09/27/17 3882 Signed Impressions: Service Date/Time: Wednesday, September 27, 2017 22:38 - CONCLUSION: 1. Inflammatory changes adjacent to the pancreatic head/uncinate process and duodenum could be related to pancreatitis or duodenitis. Correlation with amylase/lipase levels recommended. Minimal fluid in the retroperitoneum. Jose Nieves MD Objective Remarks GENERAL: NAD SKIN: Warm and dry. HEAD: Normocephalic. EYES: No scleral icterus. No injection or drainage. NECK: Supple, trachea midline. No JVD or lymphadenopathy. CARDIOVASCULAR: Regular rate and rhythm without murmurs, gallops, or rubs. RESPIRATORY: Breath sounds equal bilaterally. No accessory muscle use. GASTROINTESTINAL: Abdomen soft, mildly tender, nondistended. +BS MUSCULOSKELETAL: No cyanosis, or edema. BACK: Nontender without obvious deformity. No CVA tenderness. Procedures none A/P Problem List: (1) Acute recurrent pancreatitis ICD Code: K85.90 - Acute pancreatitis without necrosis or infection, unspecified Assessment and Plan 27-year-old man with Acute recurrent pancreatitis-improving Continue with medical management with aggressive IV fluid hydration, parenteral pain management, Clear liquid diet and lipase monitoring. Abdominal ultrasound without any evidence of stone Alcohol cessation strongly advised Constipation Stool softener Alcohol abuse Alcohol counselling cessation provided CIWA, Rally pack DVT prophylaxis: Ambulatory Jose Scott MD Sep 30, 2017 12:44
--- NOTE | 2017-09-30 12:50 | HHI.DS ---
Discharge Summary Admission Date Sep 27, 2017 at 23:24 Discharge Date: Sep 30, 2017 Admitting Diagnosis Acute pancreatitis, duodenitis (1) Acute recurrent pancreatitis ICD Code: K85.90 - Acute pancreatitis without necrosis or infection, unspecified Procedures none Brief History - From Admission 27-year-old male with no significant past medical history presents to the emergency department for the evaluation of abdominal pain. The patient reports his abdominal pain began yesterday. He describes it as epigastric, radiating to his back and severe in nature. He endorses constant nausea without emesis. Lipase 3180. CT of the abdomen/pelvis significant for inflammatory changes adjacent to the pancreatic head/uncinate process and the duodenum. No gallstones or dilation of the biliary tree noted. Patient reports he had similar symptoms for approximately 3 days 4 months ago that resolved on its own. He endorses drinking 3-4 beers approximately twice weekly. CBC/BMP: 09/29/17 0608 09/30/17 0430 Significant Findings Laboratory Tests Test 09/27/17 21:50 09/27/17 22:30 09/28/17 05:55 09/29/17 06:08 Neutrophils (%) (Auto) 70.4 % (16.0-70.0) Monocytes (%) (Auto) 8.9 % (0.0-8.0) 10.2 % (0.0-8.0) 11.1 % (0.0-8.0) Monocytes # (Auto) 1.0 TH/MM3 (0-0.9) 1.2 TH/MM3 (0-0.9) 1.1 TH/MM3 (0-0.9) Prothrombin Time 9.7 SEC (9.8-11.6) Random Glucose 119 MG/DL (74-106) 67 MG/DL (74-106) Lipase 3180 U/L (73-393) 3082 U/L (73-393) 961 U/L (73-393) Urine Occult Blood TRACE (NEG) White Blood Count 12.1 TH/MM3 (4.0-11.0) Red Blood Count 4.24 MIL/MM3 (4.50-5.90) 3.90 MIL/MM3 (4.50-5.90) Neutrophils # (Auto) 8.3 TH/MM3 (1.8-7.7) Hemoglobin 12.8 GM/DL (13.0-17.0) Hematocrit 37.1 % (39.0-51.0) Aspartate Amino Transf (AST/SGOT) 12 U/L (15-37) Total Bilirubin 1.2 MG/DL (0.2-1.0) Potassium Level 3.4 MEQ/L (3.5-5.1) Test 09/30/17 04:30 Calcium Level 8.3 MG/DL (8.5-10.1) Chloride Level 109 MEQ/L (98-107) Lipase 463 U/L (73-393) Imaging Last Impressions Abdomen Ultrasound 09/29/17 0000 Signed Impressions: Service Date/Time: September 16:14 - CONCLUSION: 1. Unremarkable ultrasound examination of the abdomen. Nonvisualization of the pancreas Niels Trammell MD Abdomen/Pelvis CT [id number] Signed Impressions: Service Date/Time: Wednesday, September 27, 2017 22:38 - CONCLUSION: 1. Inflammatory changes adjacent to the pancreatic head/uncinate process and duodenum could be related to pancreatitis or duodenitis. Correlation with amylase/lipase levels recommended. Minimal fluid in the retroperitoneum. Jose Nieves MD PE at Discharge GENERAL: NAD SKIN: Warm and dry. HEAD: Normocephalic. EYES: No scleral icterus. No injection or drainage. NECK: Supple, trachea midline. No JVD or lymphadenopathy. CARDIOVASCULAR: Regular rate and rhythm without murmurs, gallops, or rubs. RESPIRATORY: Breath sounds equal bilaterally. No accessory muscle use. GASTROINTESTINAL: Abdomen soft, mildly tender, nondistended. +BS MUSCULOSKELETAL: No cyanosis, or edema. BACK: Nontender without obvious deformity. No CVA tenderness. Hospital Course While in the hospital, the patient was treated for Acute recurrent pancreatitis-improving Treated with with aggressive IV fluid hydration, parenteral pain management , and lipase monitoring.Diet was advanced accordingly Abdominal ultrasound without any evidence of stone Alcohol cessation strongly advised Constipation tx with Stool softener Alcohol abuse Alcohol counselling cessation provided CIWA, Rally pack DVT prophylaxis: Ambulatory Pt Condition on Discharge: Stable Discharge Disposition: Discharge Home Discharge Time: <= 30 minutes Discharge Instructions DIET: Follow Instructions for: Clear Liquid Diet Activities you can perform: Regular-No Restrictions Follow up Referrals: PCP Follow-up - 1 Week PCP Follow-up PCP Follow-up @ [facility] PCP Follow-up @ [facility] New Medications: Tramadol (Ultram) 50 Mg Tab 50 MG PO Q4H PRN for PAIN, #20 TAB 0 Refills Discontinued Medications: Amoxicillin-Clavulanate (Augmentin) 875-125 Mg Tab 1 TAB PO BID for Infection, #20 TAB 0 Refills Hydrocodone/Acetaminophen (Hydrocodone-Acetamin 5-325 mg) 5 Mg-325 Mg Tablet 1-2 TAB PO Q4H PRN for moderate to severe pain, #30 TAB 0 Refills Sulfamethoxazole-Trimethoprim (Bactrim DS) 800-160 Mg Tab 1 TAB PO BID for Infection, #20 TAB 0 Refills Jose Scott MD Sep 30, 2017 12:50
== END 2017-09-30 12:11 | disposition home or self-care (01) | DRG 440 ==
LOC: NEPC 21:31 → NEDA 23:24 → N04B 09-28 00:50
PROVIDERS: ADMIT Hospitalist; ATTEND Hospitalist
DX: K85.80 Other acute pancreatitis without necrosis or infection (principal); F10.10 Alcohol abuse, uncomplicated; K29.80 Duodenitis without bleeding; K86.1 Other chronic pancreatitis; K59.00 Constipation, unspecified; Z87.891 Personal history of nicotine dependence; Z86.010 Personal history of colon polyps
CPT/HCPCS: 74177; 76700; 80048; 80053; 81001; 83690; 85025; 85610; 85730; 93005; 96374; 96375; 96376; C9113; J1170; J1885; J2060; J2270; J2405; J7030; Q9967